=== PATIENT | male | born 1945 | race Caucasian/White ===

== ENCOUNTER 2017-03-22 09:34 | Emergency (ER) | payer MEDICARE, BC ==
[~2017-03-22] VITALS: Ht 177.8 cm; Wt 122.7 kg
[~2017-03-22 09:34] MED LIST: ASACOL HD800 MG PO; ASPIRIN 81M81 MG/TA2 PO; CANASA 1000MG1000 MG RC; CARAFATE 1GM1 G PO; ECONAZOLE NITRATE11 TOP; ELIDEL1%; K-DUR 10 MEQ T10 MEQ PO; LANTUS100 U/ML SC; LASIX 40MG TABL40 MG PO; LIPITOR 40MG TA40 MG PO; NORCO 325 MG-51 TAB PO; NOVOLOG 100U100 U/M1 SQ; PRIL40 PO; ZOFRAN ODT4 MG PO
[2017-03-22 09:39] VITALS: TEMP 97.5
[2017-03-22 10:35] LABS: BASO # 0.1 (0.0-0.2); EOS # 0.2 (0.0-0.7); EOS % 2.9 % (0-4.0); GRAN # 4.5 (1.4-6.5); HEMATOCRIT 40.3 % (42.0-52.0); HEMOGLOBIN 13.8 g/dl (13.5-18.0); LYMPH # 1.3 (1.2-3.4); LYMPH % 18.1 % (20.0-51.0); MEAN CELL VOLUME 87 fl (80.0-100.0); MEAN CORPUSCULAR HEMOGLOBIN 30 pg (27.0-31.0); MEAN CORPUSCULAR HGB CONC 34 g/dl (33.0-37.0); MEAN PLATELET VOLUME 11.6 fl (7.4-10.4); MONO # 0.9 (0.1-0.6); MONO % 12.6 % (1.7-9.3); PLATELET COUNT 157 K/mm3 (130-400); RED BLOOD COUNT 4.65 M/mm3 (4.20-5.60); REDCELL DISTRIBUTION WIDTH-CV 14.5 % (11.5-14.5); WHITE BLOOD COUNT 6.9 K/mm3 (4.8-10.8)
[2017-03-22 10:56] LABS: ADJUSTED CALCIUM 9.3 mg/dL (8.4-10.2); ALBUMIN 4.2 gm/dL (3.5-5.0); BILIRUBIN,TOTAL 1.4 mg/dL (0.0-1.0); C-REACTIVE PROTEIN 2.1 mg/dL (0.0-0.9); CALCIUM 9.5 mg/dL (8.4-10.2); CREATININE, serum 1.51 mg/dL (0.66-1.25); POTASSIUM 3.4 mmol/L (3.4-5.0); TOTAL PROTEIN 7.4 gm/dL (6.4-8.2)
[2017-03-22 11:26] LABS: PH 5 (5-8); SQUAMOUS EPITHELIAL None Seen /hpf; URINE APPEARANCE Clear; URINE BACTERIA None Seen /hpf; URINE BILIRUBIN Negative (NEGATIVE); URINE BLOOD Negative (NEGATIVE); URINE COLOR Yellow; URINE GLUCOSE 3+ (NEGATIVE); URINE KETONE 1+ (NEGATIVE); URINE RBC 0-2 /hpf; URINE UROBILINOGEN Negative (NEGATIVE); URINE WBC 0-2 /hpf
[2017-03-22] MEDS ORDERED: GLUCOPHAGE XR500 M1 PO (12:03)
[2017-03-22] MEDS ORDERED: PREDNISONE20 MG PO (12:14)
[2017-03-22] MEDS ORDERED: NORCO 325 MG-51 TAB PO (12:22)
[2017-03-22] MEDS ORDERED: ZOFRAN 4MG T4 MG/TAB PO (12:22)
[2017-03-22 12:49] VITALS: BP 142/96; PULSE 94
== END 2017-03-22 12:51 | disposition home or self-care (01) ==
LOC: COL.ER 09:34
PROVIDERS: Emergency Medicine
DX: N13.2 Hydronephrosis with renal and ureteral calculous obstruction (principal); E11.9 Type 2 diabetes mellitus without complications; Z79.4 Long term (current) use of insulin; E78.5 Hyperlipidemia, unspecified; K51.90 Ulcerative colitis, unspecified, without complications; R63.0 Anorexia; R11.0 Nausea
CPT/HCPCS: J1170; J2405; J7030; Q9967

== ENCOUNTER 2017-07-26 15:26 | Emergency (ER) | payer MEDICARE, BC ==
[~2017-07-26] VITALS: Ht 177.8 cm; Wt 120.5 kg
[~2017-07-26 15:26] MED LIST changes: +GLUCOPHAGE XR500 M1 PO; +PREDNISONE20 MG PO; +ZOFRAN 4MG T4 MG/TAB PO
[2017-07-26 15:30] VITALS: TEMP 97.5
[2017-07-26 15:56] LABS: BASO # 0.1 (0.0-0.2); BASO % 1.3 % (0.0-2.0); EOS # 0.2 (0.0-0.7); EOS % 2.9 % (0-4.0); GRAN # 5.3 (1.4-6.5); GRAN % 66.7 % (42.2-75.2); HEMATOCRIT 40.7 % (42.0-52.0); HEMOGLOBIN 13.8 g/dl (13.5-18.0); LYMPH # 1.4 (1.2-3.4); LYMPH % 17.9 % (20.0-51.0); MEAN CELL VOLUME 93 fl (80.0-100.0); MEAN CORPUSCULAR HEMOGLOBIN 31 pg (27.0-31.0); MEAN CORPUSCULAR HGB CONC 34 g/dl (33.0-37.0); MEAN PLATELET VOLUME 10.3 fl (7.4-10.4); MONO # 0.8 (0.1-0.6); MONO % 10.4 % (1.7-9.3); PLATELET COUNT 171 K/mm3 (130-400); RED BLOOD COUNT 4.39 M/mm3 (4.20-5.60); WHITE BLOOD COUNT 7.9 K/mm3 (4.8-10.8)
[2017-07-26 16:06] LABS: INR 1.1 (0.8-3.0); PROTHROMBIN TIME 13.2 SECONDS (9.7-12.8)
[2017-07-26] MEDS ORDERED: ASACOL HD800 MG PO (16:09)
[2017-07-26] MEDS ORDERED: K-TAB10 PO (16:10)
[2017-07-26] MEDS ORDERED: PRILOSEC 20MG20 MG PO (16:10)
[2017-07-26] MEDS ORDERED: LIPITOR 40MG TA40 MG PO (16:11)
[2017-07-26] MEDS ORDERED: LASIX 80MG TABL80 MG PO (16:11)
[2017-07-26] MEDS ORDERED: LANTUS100 U/ML SQ (16:12)
[2017-07-26] MEDS ORDERED: ASPIRIN E.C. 8181 MG PO (16:13)
[2017-07-26] MEDS ORDERED: NOVOLOG 100U100 U/M1 SQ (16:13)
[2017-07-26] MEDS ORDERED: ZOFRAN 4MG T4 MG/TAB PO (16:14)
[2017-07-26 16:15] LABS: ADJUSTED CALCIUM 8.8 mg/dL (8.4-10.2); ALANINE AMINOTRANSFERASE 62 U/L (21-72); ALBUMIN 4.4 gm/dL (3.5-5.0); ALKALINE PHOSPHATASE 140 U/L (50-136); ANION GAP 13 mmol/L (7-16); BLOOD UREA NITROGEN 12 mg/dL (9-20); CALCIUM 9.1 mg/dL (8.4-10.2); CARBON DIOXIDE 22 mmol/L (22-30); CHLORIDE 98 mmol/L (98-107); CREATININE, serum 1.18 mg/dL (0.66-1.25); LIPASE 25 U/L (23-300); POTASSIUM 4.3 mmol/L (3.4-5.0); SODIUM 133 mmol/L (137-145); TOTAL PROTEIN 7.5 gm/dL (6.4-8.2)
[2017-07-26 16:16] LABS: C-REACTIVE PROTEIN < 0.5 mg/dL (0.0-0.9)
[2017-07-26 16:17] LABS: GLUCOSE 404 mg/dL (74-106)
[2017-07-26 18:01] VITALS: BP 117/67; PULSE 98
== END 2017-07-26 18:15 | disposition home or self-care (01) ==
LOC: COL.ER 15:26
PROVIDERS: Family Medicine
DX: K62.5 Hemorrhage of anus and rectum (principal); R10.9 Unspecified abdominal pain; E11.9 Type 2 diabetes mellitus without complications; Z79.4 Long term (current) use of insulin; Z79.82 Long term (current) use of aspirin; Z98.890 Other specified postprocedural states
CPT/HCPCS: J1170; J2405; J7030; J7050; Q9967

== ENCOUNTER 2017-07-29 20:35 | Emergency (ER) | payer MEDICARE, BC ==
[~2017-07-29] VITALS: Ht 177.8 cm; Wt 117.3 kg
[~2017-07-29 20:35] MED LIST changes: +ASPIRIN E.C. 8181 MG PO; +K-TAB10 PO; +LANTUS100 U/ML SQ; +LASIX 80MG TABL80 MG PO; +PRILOSEC 20MG20 MG PO
[2017-07-29 20:37] VITALS: BP 145/84; PULSE 103; TEMP 99.3
[2017-07-29 21:10] LABS: BASO # 0.1 (0.0-0.2); BASO % 1.1 % (0.0-2.0); EOS # 0.2 (0.0-0.7); EOS % 2.9 % (0-4.0); GRAN # 4.2 (1.4-6.5); GRAN % 57.6 % (42.2-75.2); HEMOGLOBIN 13.3 g/dl (13.5-18.0); LYMPH # 1.8 (1.2-3.4); LYMPH % 24.7 % (20.0-51.0); MEAN CELL VOLUME 93 fl (80.0-100.0); MEAN CORPUSCULAR HEMOGLOBIN 32 pg (27.0-31.0); MEAN CORPUSCULAR HGB CONC 34 g/dl (33.0-37.0); MEAN PLATELET VOLUME 10.4 fl (7.4-10.4); MONO % 13.2 % (1.7-9.3); PLATELET COUNT 177 K/mm3 (130-400); RED BLOOD COUNT 4.19 M/mm3 (4.20-5.60); WHITE BLOOD COUNT 7.3 K/mm3 (4.8-10.8)
[2017-07-29 21:20] LABS: ADJUSTED CALCIUM 9.3 mg/dL (8.4-10.2); ALANINE AMINOTRANSFERASE 73 U/L (21-72); ALBUMIN 4.2 gm/dL (3.5-5.0); ALKALINE PHOSPHATASE 145 U/L (50-136); ANION GAP 11 mmol/L (7-16); BILIRUBIN,TOTAL 0.7 mg/dL (0.0-1.0); BLOOD UREA NITROGEN 10 mg/dL (9-20); CALCIUM 9.5 mg/dL (8.4-10.2); CARBON DIOXIDE 25 mmol/L (22-30); CHLORIDE 97 mmol/L (98-107); CREATININE, serum 1.21 mg/dL (0.66-1.25); GLUCOSE 260 mg/dL (74-106); POTASSIUM 4.4 mmol/L (3.4-5.0); SODIUM 133 mmol/L (137-145); TOTAL PROTEIN 7.4 gm/dL (6.4-8.2)
[2017-07-29 22:30] LABS: C-REACTIVE PROTEIN < 0.5 mg/dL (0.0-0.9); LIPASE 25 U/L (23-300)
[2017-07-29] MEDS ORDERED: PREDNISONE20 MG PO (22:46)
[2017-07-29] MEDS ORDERED: NORCO 325 MG-51 TAB PO (22:46)
== END 2017-07-29 23:10 | disposition home or self-care (01) ==
LOC: COL.ER 20:35
PROVIDERS: Emergency Medicine
DX: K92.2 Gastrointestinal hemorrhage, unspecified (principal); K51.90 Ulcerative colitis, unspecified, without complications; I10 Essential (primary) hypertension; E11.9 Type 2 diabetes mellitus without complications; E78.5 Hyperlipidemia, unspecified; Z79.82 Long term (current) use of aspirin; Z79.4 Long term (current) use of insulin
CPT/HCPCS: C9113; J2930; J3010; J7030

== ENCOUNTER 2017-08-01 15:09 | Observation (INO) | payer MEDICARE, BC ==
[~2017-08-01] VITALS: Ht 177.8 cm; Wt 113.6 kg
[2017-08-01 16:44] LABS: BASO # 0.1 (0.0-0.2); BASO % 1.2 % (0.0-2.0); EOS % 0.3 % (0-4.0); GRAN # 6.1 (1.4-6.5); GRAN % 78.3 % (42.2-75.2); HEMOGLOBIN 14.4 g/dl (13.5-18.0); LYMPH # 0.8 (1.2-3.4); LYMPH % 10.6 % (20.0-51.0); MEAN CELL VOLUME 93 fl (80.0-100.0); MEAN CORPUSCULAR HEMOGLOBIN 31 pg (27.0-31.0); MEAN CORPUSCULAR HGB CONC 34 g/dl (33.0-37.0); MEAN PLATELET VOLUME 11.4 fl (7.4-10.4); MONO # 0.7 (0.1-0.6); MONO % 8.6 % (1.7-9.3); PLATELET COUNT 236 K/mm3 (130-400); RED BLOOD COUNT 4.65 M/mm3 (4.20-5.60); WHITE BLOOD COUNT 7.8 K/mm3 (4.8-10.8)
[2017-08-01 16:52] LABS: INR 1.1 (0.8-3.0); PROTHROMBIN TIME 12.6 SECONDS (9.7-12.8)
[2017-08-01 16:55] LABS: PARTIAL THROMBOPLASTIN TIME 27.1 SECONDS (26.0-37.0)
[2017-08-01 17:13] LABS: ADJUSTED CALCIUM 8.6 mg/dL (8.4-10.2); ALBUMIN 4.9 gm/dL (3.5-5.0); BILIRUBIN,TOTAL 1.2 mg/dL (0.0-1.0); CALCIUM 9.3 mg/dL (8.4-10.2); CREATININE, serum 1.26 mg/dL (0.66-1.25); POTASSIUM 4.8 mmol/L (3.4-5.0); TOTAL PROTEIN 8.3 gm/dL (6.4-8.2)
[2017-08-01 17:23] VITALS: BP 160/74; PULSE 97
[2017-08-01 21:35] VITALS: BP 145/78; PULSE 105; TEMP 97.8
[2017-08-02 04:00] VITALS: BP 138/74; PULSE 102; TEMP 97.6
[2017-08-02 07:34] LABS: BASO # 0.1 (0.0-0.2); BASO % 0.7 % (0.0-2.0); EOS % 0.2 % (0-4.0); GRAN # 6.8 (1.4-6.5); HEMATOCRIT 37.7 % (42.0-52.0); HEMOGLOBIN 12.8 g/dl (13.5-18.0); LYMPH # 0.9 (1.2-3.4); LYMPH % 11.2 % (20.0-51.0); MEAN CELL VOLUME 92 fl (80.0-100.0); MEAN CORPUSCULAR HEMOGLOBIN 31 pg (27.0-31.0); MEAN CORPUSCULAR HGB CONC 34 g/dl (33.0-37.0); MEAN PLATELET VOLUME 10.7 fl (7.4-10.4); MONO # 0.3 (0.1-0.6); MONO % 3.8 % (1.7-9.3); PLATELET COUNT 197 K/mm3 (130-400); WHITE BLOOD COUNT 8.2 K/mm3 (4.8-10.8)
[2017-08-02 07:43] LABS: CALCIUM 8.5 mg/dL (8.4-10.2); CREATININE, serum 1.07 mg/dL (0.66-1.25); POTASSIUM 4.5 mmol/L (3.4-5.0)
[2017-08-02 10:00] VITALS: BP 141/59; PULSE 74
[2017-08-02 10:15] VITALS: BP 139/67; PULSE 75; TEMP 98.4
[2017-08-02 10:30] VITALS: BP 143/60; PULSE 74; TEMP 98.2
[2017-08-02 10:45] VITALS: BP 131/71; PULSE 84
[2017-08-02] MEDS ORDERED: BENTYL 10MG10 MG/CAP PO (13:12)
[2017-08-02] MEDS ORDERED: METAMUCIL3.4 GM/DOS PO (13:13)
[2017-08-02] MEDS ORDERED: PREDNISONE10 MG PO (13:24)
[2017-08-02 13:44] VITALS: BP 134/73; PULSE 79
== END 2017-08-02 14:10 | disposition home or self-care (01) ==
LOC: COL.ER 15:09 → SURG 19:51
PROVIDERS: Emergency Medicine; Internal Medicine
DX: K51.511 Left sided colitis with rectal bleeding (principal); N17.9 Acute kidney failure, unspecified; E87.1 Hypo-osmolality and hyponatremia; E86.1 Hypovolemia; K29.30 Chronic superficial gastritis without bleeding; K63.89 Other specified diseases of intestine; R74.8 Abnormal levels of other serum enzymes; I10 Essential (primary) hypertension; E78.5 Hyperlipidemia, unspecified; Z79.4 Long term (current) use of insulin; Z79.82 Long term (current) use of aspirin; Z86.12 Personal history of poliomyelitis; Z87.891 Personal history of nicotine dependence; Z88.0 Allergy status to penicillin; E11.65 Type 2 diabetes mellitus with hyperglycemia; K21.9 Gastro-esophageal reflux disease without esophagitis; K76.0 Fatty (change of) liver, not elsewhere classified; G47.33 Obstructive sleep apnea (adult) (pediatric); K57.90 Diverticulosis of intestine, part unspecified, without perforation or abscess without bleeding; K64.4 Residual hemorrhoidal skin tags; R63.4 Abnormal weight loss
CPT/HCPCS: G0378; J1815; J2704; J2930; J7030; J7512

== ENCOUNTER 2017-12-21 20:22 | Emergency (ER) | payer MEDICARE, BC ==
[~2017-12-21] VITALS: Ht 177.8 cm; Wt 118.2 kg
[~2017-12-21 20:22] MED LIST changes: +BENTYL 10MG10 MG/CAP PO; +METAMUCIL3.4 GM/DOS PO; +PREDNISONE10 MG PO
[2017-12-21 20:47] VITALS: TEMP 97
[2017-12-21 21:01] LABS: BASO # 0.1 (0.0-0.2); BASO % 1.1 % (0.0-2.0); EOS # 0.2 (0.0-0.7); EOS % 1.5 % (0-4.0); GRAN # 6.8 (1.4-6.5); GRAN % 63.4 % (42.2-75.2); HEMATOCRIT 42.4 % (42.0-52.0); HEMOGLOBIN 14.7 g/dl (13.5-18.0); LYMPH # 2.4 (1.2-3.4); LYMPH % 22.2 % (20.0-51.0); MEAN CELL VOLUME 88 fl (80.0-100.0); MEAN CORPUSCULAR HEMOGLOBIN 30 pg (27.0-31.0); MEAN CORPUSCULAR HGB CONC 35 g/dl (33.0-37.0); MEAN PLATELET VOLUME 10.4 fl (7.4-10.4); MONO # 1.2 (0.1-0.6); MONO % 11.1 % (1.7-9.3); PLATELET COUNT 227 K/mm3 (130-400); RED BLOOD COUNT 4.83 M/mm3 (4.20-5.60); REDCELL DISTRIBUTION WIDTH-CV 13.8 % (11.5-14.5)
[2017-12-21 21:09] LABS: ALBUMIN 4.3 gm/dL (3.5-5.0); BILIRUBIN,TOTAL 0.5 mg/dL (0.0-1.0); CALCIUM 9.8 mg/dL (8.4-10.2); CREATININE, serum 1.2 mg/dL (0.66-1.25); POTASSIUM 3.7 mmol/L (3.4-5.0); TOTAL PROTEIN 8.1 gm/dL (6.4-8.2)
[2017-12-21 21:17] LABS: C-REACTIVE PROTEIN 0.5 mg/dL (0.0-0.9)
[2017-12-21 22:12] LABS: COLLECTION METHOD CATHETER
[2017-12-21 22:17] LABS: PH 5 (5-8); SQUAMOUS EPITHELIAL None Seen /hpf; URINE APPEARANCE Clear; URINE BACTERIA None Seen /hpf; URINE BILIRUBIN Negative (NEGATIVE); URINE BLOOD Negative (NEGATIVE); URINE COLOR Yellow; URINE GLUCOSE 2+ (NEGATIVE); URINE KETONE Negative (NEGATIVE); URINE LEUKOCYTE ESTERASE Negative (NEGATIVE); URINE NITRATE Negative (NEGATIVE); URINE PROTEIN(semi-quant) Negative (NEGATIVE); URINE RBC 0-2 /hpf; URINE UROBILINOGEN Negative (NEGATIVE)
[2017-12-21 23:40] VITALS: BP 153/77; PULSE 100
[2017-12-22] MEDS ORDERED: MACROBID 1100 MG/CAP PO (13:39)
[2017-12-22] MEDS ORDERED: FLOMAX 0.40.4 MG/CAP PO (13:51)
== END 2017-12-21 23:40 | disposition home or self-care (01) ==
LOC: COL.ER 20:22
PROVIDERS: Family Medicine
DX: K59.00 Constipation, unspecified (principal); N40.0 Benign prostatic hyperplasia without lower urinary tract symptoms; R33.9 Retention of urine, unspecified; Z79.82 Long term (current) use of aspirin; Z79.4 Long term (current) use of insulin
CPT/HCPCS: J7050; Q9967

== ENCOUNTER 2017-12-22 10:01 | Emergency (ER) | payer MEDICARE, BC ==
[~2017-12-22] VITALS: Ht 177.8 cm; Wt 118.2 kg
[2017-12-22 10:04] VITALS: TEMP 97.6
[2017-12-22 10:36] LABS: COLLECTION METHOD CATHETER
[2017-12-22 10:47] LABS: MUCOUS Present /lpf; PH 5 (5-8); SQUAMOUS EPITHELIAL 0-2 /hpf; URINE APPEARANCE Hazy; URINE BACTERIA None Seen /hpf; URINE BILIRUBIN Negative (NEGATIVE); URINE BLOOD 2+ (NEGATIVE); URINE COLOR Yellow; URINE GLUCOSE 3+ (NEGATIVE); URINE KETONE Negative (NEGATIVE); URINE LEUKOCYTE ESTERASE Negative (NEGATIVE); URINE NITRATE Negative (NEGATIVE); URINE PROTEIN(semi-quant) 2+ (NEGATIVE); URINE RBC >50 /hpf
[2017-12-22 11:02] LABS: BASO # 0.1 (0.0-0.2); BASO % 1.2 % (0.0-2.0); EOS # 0.1 (0.0-0.7); EOS % 1.1 % (0-4.0); GRAN # 6.8 (1.4-6.5); GRAN % 73.7 % (42.2-75.2); HEMATOCRIT 42.3 % (42.0-52.0); HEMOGLOBIN 14.6 g/dl (13.5-18.0); LYMPH # 1.2 (1.2-3.4); LYMPH % 12.8 % (20.0-51.0); MEAN CELL VOLUME 88 fl (80.0-100.0); MEAN CORPUSCULAR HEMOGLOBIN 30 pg (27.0-31.0); MEAN CORPUSCULAR HGB CONC 35 g/dl (33.0-37.0); MEAN PLATELET VOLUME 10.8 fl (7.4-10.4); MONO % 10.7 % (1.7-9.3); PLATELET COUNT 182 K/mm3 (130-400); RED BLOOD COUNT 4.83 M/mm3 (4.20-5.60); REDCELL DISTRIBUTION WIDTH-CV 14.1 % (11.5-14.5)
[2017-12-22 11:14] LABS: INR 1.1 (0.8-3.0); PROTHROMBIN TIME 12.5 SECONDS (9.7-12.8)
[2017-12-22 11:14] LABS: BILIRUBIN,TOTAL 0.8 mg/dL (0.0-1.0); C-REACTIVE PROTEIN 0.7 mg/dL (0.0-0.9); CALCIUM 9.2 mg/dL (8.4-10.2); CREATININE, serum 1.11 mg/dL (0.66-1.25); POTASSIUM 3.9 mmol/L (3.4-5.0); TOTAL PROTEIN 7.5 gm/dL (6.4-8.2)
[2017-12-22 11:17] LABS: PARTIAL THROMBOPLASTIN TIME 24.9 SECONDS (26.0-37.0)
[2017-12-22] MEDS ORDERED: MACROBID 1100 MG/CAP PO (13:39)
[2017-12-22] MEDS ORDERED: FLOMAX 0.40.4 MG/CAP PO (13:51)
[2017-12-22 14:00] VITALS: BP 126/67; PULSE 94
== END 2017-12-22 14:00 | disposition home or self-care (01) ==
LOC: COL.ER 10:01
PROVIDERS: Emergency Medicine
DX: N39.0 Urinary tract infection, site not specified (principal); K56.41 Fecal impaction; E11.9 Type 2 diabetes mellitus without complications; I10 Essential (primary) hypertension; E78.5 Hyperlipidemia, unspecified; Z90.89 Acquired absence of other organs; Z79.4 Long term (current) use of insulin; Z79.82 Long term (current) use of aspirin
CPT/HCPCS: J2060; J3010

== ENCOUNTER 2017-12-25 12:25 | Emergency (ER) | payer MEDICARE, BC ==
[~2017-12-25] VITALS: Ht 177.8 cm; Wt 118.2 kg
[~2017-12-25 12:25] MED LIST changes: +FLOMAX 0.40.4 MG/CAP PO; +MACROBID 1100 MG/CAP PO
[2017-12-25 12:29] VITALS: TEMP 97
[2017-12-25 13:45] VITALS: BP 148/74; PULSE 70
== END 2017-12-25 13:46 | disposition home or self-care (01) ==
LOC: COL.ER 12:25
DX: G89.18 Other acute postprocedural pain (principal); N48.89 Other specified disorders of penis; T83.84XA Pain due to genitourinary prosthetic devices, implants and grafts, initial encounter; E11.9 Type 2 diabetes mellitus without complications; E78.00 Pure hypercholesterolemia, unspecified; Y73.2 Prosthetic and other implants, materials and accessory gastroenterology and urology devices associated with adverse incidents; Z87.19 Personal history of other diseases of the digestive system; Z79.4 Long term (current) use of insulin; Z79.82 Long term (current) use of aspirin

== ENCOUNTER 2019-01-15 13:53 | Emergency (ER) | payer MEDICARE, BC ==
[~2019-01-15] VITALS: Ht 177.8 cm; Wt 127.3 kg
[2019-01-15 13:54] VITALS: TEMP 98.4
[2019-01-15 15:28] LABS: BASO # 0.1 (0.0-0.2); BASO % 1.1 % (0.0-2.0); EOS % 0.4 % (0-4.0); GRAN # 6.3 (1.4-6.5); GRAN % 75.9 % (42.2-75.2); HEMATOCRIT 42.7 % (42.0-52.0); HEMOGLOBIN 14.5 g/dl (13.5-18.0); LYMPH # 0.9 (1.2-3.4); LYMPH % 10.6 % (20.0-51.0); MEAN CELL VOLUME 90 fl (80.0-100.0); MEAN CORPUSCULAR HEMOGLOBIN 31 pg (27.0-31.0); MEAN CORPUSCULAR HGB CONC 34 g/dl (33.0-37.0); MONO # 0.9 (0.1-0.6); MONO % 11.3 % (1.7-9.3); PLATELET COUNT 205 K/mm3 (130-400); RED BLOOD COUNT 4.76 M/mm3 (4.20-5.60); REDCELL DISTRIBUTION WIDTH-CV 14.6 % (11.5-14.5)
[2019-01-15 15:49] LABS: BILIRUBIN,TOTAL 0.8 mg/dL (0.0-1.0); CALCIUM 8.9 mg/dL (8.4-10.2); CREATININE, serum 1.22 (0.66-1.25); TOTAL PROTEIN 7.4 gm/dL (6.4-8.2)
[2019-01-15 15:56] LABS: C-REACTIVE PROTEIN 0.5 mg/dL (0.0-0.9)
[2019-01-15 16:48] LABS: COLLECTION METHOD CLEAN CATCH
[2019-01-15 16:53] LABS: PH 5 (5-8); SQUAMOUS EPITHELIAL 0-2 /hpf; URINE APPEARANCE Clear; URINE BACTERIA Rare /hpf; URINE BILIRUBIN Negative (NEGATIVE); URINE BLOOD Negative (NEGATIVE); URINE COLOR Straw; URINE GLUCOSE Negative (NEGATIVE); URINE KETONE Negative (NEGATIVE); URINE LEUKOCYTE ESTERASE Negative (NEGATIVE); URINE NITRATE Negative (NEGATIVE); URINE PROTEIN(semi-quant) Negative (NEGATIVE); URINE RBC 0-2 /hpf; URINE UROBILINOGEN Negative (NEGATIVE)
[2019-01-15 17:15] VITALS: BP 133/68; PULSE 110
== END 2019-01-15 17:25 | disposition home or self-care (01) ==
LOC: COL.ER 13:53
PROVIDERS: Nurse Practitioner Primary Care
DX: R19.7 Diarrhea, unspecified (principal); E11.9 Type 2 diabetes mellitus without complications; I11.0 Hypertensive heart disease with heart failure; I50.9 Heart failure, unspecified; Z79.4 Long term (current) use of insulin; Z79.82 Long term (current) use of aspirin; Z87.442 Personal history of urinary calculi; Z87.19 Personal history of other diseases of the digestive system; Z90.49 Acquired absence of other specified parts of digestive tract; Z98.890 Other specified postprocedural states; Z87.891 Personal history of nicotine dependence
CPT/HCPCS: J1170; J2550; J7030; Q9967

== ENCOUNTER 2019-01-17 12:39 | Inpatient (IN) | payer MEDICARE, BC ==
[~2019-01-17] VITALS: Ht 177.8 cm; Wt 129.0 kg
[2019-01-17 13:19] VITALS: BP 121/71; PULSE 95; TEMP 98.5
[2019-01-17 13:26] LABS: BASO # 0.1 (0.0-0.2); BASO % 1.5 % (0.0-2.0); EOS # 0.1 (0.0-0.7); EOS % 2.3 % (0-4.0); GRAN # 3.6 (1.4-6.5); GRAN % 58.6 % (42.2-75.2); HEMATOCRIT 38.9 % (42.0-52.0); LYMPH # 1.6 (1.2-3.4); LYMPH % 25.3 % (20.0-51.0); MEAN CELL VOLUME 92 fl (80.0-100.0); MEAN CORPUSCULAR HEMOGLOBIN 31 pg (27.0-31.0); MEAN CORPUSCULAR HGB CONC 33 g/dl (33.0-37.0); MEAN PLATELET VOLUME 10.9 fl (7.4-10.4); MONO # 0.7 (0.1-0.6); MONO % 11.5 % (1.7-9.3); PLATELET COUNT 174 K/mm3 (130-400); RED BLOOD COUNT 4.25 M/mm3 (4.20-5.60); REDCELL DISTRIBUTION WIDTH-CV 14.6 % (11.5-14.5)
[2019-01-17 13:36] LABS: ALBUMIN 3.6 gm/dL (3.5-5.0); BILIRUBIN,TOTAL 0.7 mg/dL (0.0-1.0); CALCIUM 8.6 mg/dL (8.4-10.2); CREATININE, serum 1.04 (0.66-1.25); POTASSIUM 4.1 mmol/L (3.4-5.0); TOTAL PROTEIN 6.7 gm/dL (6.4-8.2)
[2019-01-17 15:25] VITALS: BP 149/63; PULSE 111; TEMP 98
[2019-01-17 17:19] VITALS: BP 154/64; PULSE 113; TEMP 97.6
--- NOTE | 2019-01-17 18:21 | NUR ---
Patient is currently in room playing poker on tablet. States he has very little pain rating 2/10 to his abdomen. Has been asking for regular foods but was started on a clear liquid diet. Blood glucose checked and attempted to administer insulin and he declined for 2 reasons, first being 6 units would not touch his hyperglycemia and second he usually takes 50u novolog 3-4 times a day. He also does not want to take any at this time since he has not eaten all day. is at bedside and brought medication list at this time. Did accept full liquid tray. Call light and personal items are within reach.
[2019-01-17] MEDS ORDERED: PRILOSEC 20MG20 MG PO (18:34)
[2019-01-17] MEDS ORDERED: PRINIVIL10 MG PO (18:34)
[2019-01-17] MEDS ORDERED: FLONASEALLERGY NS (18:35)
[2019-01-17 19:24] VITALS: BP 149/71; PULSE 95; TEMP 98.1
--- NOTE | 2019-01-17 23:02 | NUR ---
PT IN BED AT THIS TIME DENIES PAIN AND DISCOMFORT. PT ADVISES THAT HE HAS NOT HAD ANY LOOSE STOOLS. NO NEEDS AT THIS TIME, CALL LIGHT WITHIN REACH.
[2019-01-17 23:28] VITALS: BP 149/67; PULSE 82; TEMP 98.9
--- NOTE | 2019-01-18 01:03 | NUR ---
PT REQUESTED TO LEAVE IV FLUIDS OFF, BECAUSE PT FEELS THAT HE CANNOT HAVE A BOWEL MOVEMENT BECAUSE OF THE IV FLUIDS.
[2019-01-18 03:32] VITALS: BP 134/51; PULSE 75; TEMP 97.8
--- NOTE | 2019-01-18 05:04 | NUR ---
CALLED BAHVIN TORRES IN REFERENCE TO PT'S DISCOMFORT TO FEELING LIKE HE HAS TO HAVE A BM BUT CANNOT. BHAVIN TORRES ADVISED THAT SHE IS OKAY WITH IT AT THIS TIME BECAUSE HE HAS HAD DIARRHIA FOR A LONG TIME AND TO ASK DR. NIEVES IN THE MORNING WHAT HE WANTS TO DO WITH IT. NO NEW ORDERS.
--- NOTE | 2019-01-18 07:20 | NUR ---
Assessment completed, alert/oriented, vital signs stable, reports continued abd pain 02/21 and requested pain meds this morning, I gave him 2 Ezel tablets, he is concerned that he has not had a BM sence admission, abdomen is soft and BS +, he is passing gas, blood sugars have been running a little high but we have him on CL only and I have explained that we are ok with him running a little high for now as he is not eating and we do not want to give too much insulin / he verbalized understanding, he is sitting on the BSC and ORACLE SOFTWARE ENGINEER is bipin to help him with a shower, denies other needs at [facility]
[2019-01-18 08:57] VITALS: BP 148/67; PULSE 80; TEMP 97.7
[2019-01-18 09:11] LABS: CREATININE, serum 0.93 (0.66-1.25); POTASSIUM 4.5 mmol/L (3.4-5.0)
[2019-01-18 12:10] VITALS: BP 166/63; PULSE 118; TEMP 97.8
--- NOTE | 2019-01-18 13:43 | NUR ---
QUINCY met with the patient and patient's , Jazz, to discuss discharge plan. The patient lives in [place] with his . He reports independence with ADLs and has a cane, walker, and walking stick. The patient's PCP is Dr. Corey Manning and he receives his medications from the [facility] or through a [employer] mail order. He reports no difficulties obtaining his meds. The patient does not have advanced directives, but he was interested in completing a DPOA-HC. The patient designated his , Jazz. QUINCY and the patient's RN, Michelle, witnessed the patient's signature. The patient was provided with the original and some copies. A copy was placed in the patient's chart. The patient plans to return home with his upon discharge. No additional needs at this time.
[2019-01-18 16:46] VITALS: BP 137/60; PULSE 109; TEMP 98
[2019-01-18 20:08] VITALS: BP 153/77; PULSE 90; TEMP 97.9
[2019-01-19] VITALS (8 sets, daily range): BP systolic 99–160; BP diastolic 41–92; PULSE 62–123; TEMP 97.4–98.4
--- NOTE | 2019-01-19 02:38 | NUR ---
EARLIER IN SHIFT PT FELT SHAKY BECAUSE HIS BLOOD GLUCOSE WAS AT 111. GAVE A SNACK TO HELP BRING UP BLOOD GLUCOSE LEVELS. BLOOD GLUCOSE AT 267 AND PT FEELS MUCH BETTER. PT ALSO REQUESTED DIET PEPSI AND GAVE HIM THAT. PT ADVISES THAT HE IS GOING HOME TODAY AND HE IS READY. PT ADVISES THAT HE WALKED EARLIER IN THE DAY AROUND THE HOSPITAL AND WAS NOT ABLE TO DO THAT BEFORE. PT DID GET LOST, SURGICAL NURSE CALLED TO GET HIM SOME ASSISTANCE TO GET BACK TO HIS ROOM. PT ALSO DID NOT HAVE HIS SHOES OR GRIPY SOCKS ON. ADVISED PT THAT IT IS IMPORTANT FOR HIM TO PROTECT HIS FEET BECAUSE HE IS A DIABETIC AND HE CAN HAVE COMPLICATIONS IF HE SHOULD GET A LACERATION ON HIS FOOT. PT VERBALIZED UNDERSTANDING. PT ADVISED THAT HE DID NOT HAVE A BOWEL MOVEMENT TODAY. PT RESTING/SLEEPING IN BED WITH NO S/S OF PAIN OR DISCOMFORT NOTED, CALL LIGHT WITHIN REACH.
--- NOTE | 2019-01-19 04:13 | NUR ---
CERTIFIED LEGAL INVESTIGATOR ADVISED THAT PT WAS TALKING TO HIMSELF. PT WOULD LOOK AT THE WALL AND START TALKING TO IT. WENT INTO ROOM CHECKED HR AND IT WAS BETWEEN 113 AND 115. PT ADVISES THAT IT IS NORMALLY 110. PT WAS ANXIOUS, ASKED IF HE WANTED SOMETHING TO HELP WITH ANXITY AND PT DECLINED. PT STARTED ASKING QUESTIONS TO NO ONE. I ASKED PT WHO HE WAS TALKING TO AND HE SAID HE DID NOT KNOW. I ADVISED HIM THAT NO ONE WAS THERE AND HE SAID THAT THEY ARE RIGHT THERE. I ADVISED HIM THAT THE CALL LIGHT IS ON THE BED AND THE TV IS ON AND THAT IS WHERE THE SOUND IS COMING FROM. PT WAS GIVEN DIET PEPSI REQUESTED. PT SITTING IN RECLINER. PT STATED THAT HE FEELS WEAK AGAIN AND DOES NOT THINK HE CAN WALK VERY FAR. ASKED PT IF HE NEEDED HELP TO GET TO BED TO REST OR SLEEP. CALL LIGHT WITHIN REACH.
[2019-01-19 06:08] LABS: BASO # 0.1 (0.0-0.2); BASO % 0.7 % (0.0-2.0); EOS % 0.2 % (0-4.0); GRAN # 6.5 (1.4-6.5); HEMATOCRIT 41.6 % (42.0-52.0); HEMOGLOBIN 14.1 g/dl (13.5-18.0); LYMPH # 0.8 (1.2-3.4); LYMPH % 9.6 % (20.0-51.0); MEAN CELL VOLUME 91 fl (80.0-100.0); MEAN CORPUSCULAR HEMOGLOBIN 31 pg (27.0-31.0); MEAN CORPUSCULAR HGB CONC 34 g/dl (33.0-37.0); MEAN PLATELET VOLUME 11.5 fl (7.4-10.4); MONO # 0.7 (0.1-0.6); MONO % 8.2 % (1.7-9.3); PLATELET COUNT 172 K/mm3 (130-400); RED BLOOD COUNT 4.56 M/mm3 (4.20-5.60); REDCELL DISTRIBUTION WIDTH-CV 14.5 % (11.5-14.5)
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
--- NOTE | 2019-01-19 08:30 | NUR ---
Telemetry in place before cardizem bolus administered- Hetal from telemetry notified of antiarrhythmic bolus before administration. Cardizem given over 2min. Pt became drowsy 1.5min into bolus, vitals obtained -remained stable. Pt converted to NSR - Hospitalist team notified - EKG ordered and RT called for EKG at 0843. Orders for an PO antiarrhythmic requested and denieda at this time. Pt remains in bed, alarm on, door open d/t pt continued attempt to get out of bed without using call light or asking for assistance. Call light in reach - still refusing its use.
--- NOTE | 2019-01-19 09:30 | NUR ---
Pt's at bedside visiting. She states pt's confusion and aggitation out of of the norm for pt. Pt continues to request getting out of bed and attempting to do so independently. Pt transfered with 2 assist to recliner - chair is near entrance door with chair alarm in place and turned on. Pt occasionally attempts to get out of chair (2 times within the hour) despite spouse at bedside and frequent reorientation by staff members.
--- NOTE | 2019-01-19 11:00 | NUR ---
Pt aggitated - PRN Haldol will be administered
--- NOTE | 2019-01-19 11:48 | NUR ---
Pt resting in bed with eyes closed not attempting to get out of bed and no vocalizations observed. Spouse remains at bedside
--- NOTE | 2019-01-19 16:02 | NUR ---
1602 call from [facility] FSBS=44. GIL Hu notified as assessment complete, notified tht patient asymptomatic - no palpations observed on telemetry, shakiness or diaphoresis. Pt drank 118mL of orange juice without difficulty. 1615: FSBS remains at 44. Additional 118mL of orange juice and chocolate ice cream consumed without difficutly. GIL Hu notified. 1630: FSBS 41, pt unable to tolerate anymore PO glucose enriched items. Per protocol IV glucose replacement administered. GIL Weiner notified 1645: FSBS 99. 1715: FSBS 80. Pt able to tolerate 118mL of grape juice well. Spouse has left for supper-states she will stay the night with pt to have a familiar face.
--- NOTE | 2019-01-19 16:44 | NUR ---
ACT= 159 seconds
--- NOTE | 2019-01-19 20:00 | NUR ---
PT IN BED RESTING, BUT GOT UP TO EAT SUPPER. BS WAS 111. PT DID NOT EAT WELL BUT DID EAT A LITTLE. IN ROOM WITH AT BEDSIDE. PT WENT BACK TO BED AFTER EATING SUPPER. PT WAS ASSISTED TO BATHROOM WELL AND GAIT WAS UNSTEADY. PT A/O X4. PT WOULD NOT OPEN EYES FOR NEUROS. CALL LIGHT WITHIN REACH.
--- NOTE | 2019-01-19 21:50 | NUR ---
PT DID NOT TAKE HIS AFTERNOON ASACOL HD 1600 MG PO. PT DID TAKE HIS HS ASACOL HD 1600 MG PO AT 2154. DAY NURSE LEFT PILLS WITH TO GIVE TO PT AND PT WAS ASLEEP. DID NOT WANT TO WAKE UP PT TO GIVE PILLS. RETURNED UNUSED PILLS IN Structure [employer].
[2019-01-20 00:10] VITALS: BP 121/59; PULSE 66; TEMP 97.9
--- NOTE | 2019-01-20 02:56 | NUR ---
PT SLEEPING/RESTING AND SOFTLY SNORING, RESP EVEN AND UNLABORED, WITH NO S/S OF PAIN OR DISCOMFORT NOTED, CALL LIGHT WITHIN REACH, BED ALARM ON, AND IN RECLINER AT BEDSIDE.
[2019-01-20 04:21] VITALS: BP 133/56; PULSE 74; TEMP 97.6
--- NOTE | 2019-01-20 07:44 | NUR ---
Report received from FARIDEH Santiago. Pt resting and eating potato chips in bed. Pt alert and oriented and denied pain. Call light in reach. Pt's in rm.
[2019-01-20 07:58] VITALS: BP 166/71; PULSE 71; TEMP 97.7
--- NOTE | 2019-01-20 08:18 | NUR ---
PT RESTING IN BED AND DENIED PAIN. PT ALERT AND ORIENTED. CALL LIGHT IN REACH. PT'S AT THE BEDSIDE.
--- NOTE | 2019-01-20 10:12 | NUR ---
Pt resting in bed comfortably and no concern. Call light in reach.
[2019-01-20] MEDS ORDERED: ROWASA ENEMA60 ML RC (12:27)
[2019-01-20] MEDS ORDERED: PREDNISONE10 MG PO (12:33)
--- NOTE | 2019-01-20 13:32 | NUR ---
Pt and went over discharge instruction and able to verbalize understanding of dc instruction. Pt signed dc paper and escorted out in WC.
== END 2019-01-20 13:44 | disposition home or self-care (01) | DRG 386 ==
LOC: MEDICAL 12:39
PROVIDERS: ADMIT Internal Medicine Gastroenterology
DX: K51.918 Ulcerative colitis, unspecified with other complication (principal); K92.1 Melena; I48.92 Unspecified atrial flutter; I10 Essential (primary) hypertension; E78.5 Hyperlipidemia, unspecified; E11.9 Type 2 diabetes mellitus without complications; Z79.4 Long term (current) use of insulin; Z88.0 Allergy status to penicillin; R19.8 Other specified symptoms and signs involving the digestive system and abdomen; R41.0 Disorientation, unspecified; R44.1 Visual hallucinations; Z66 Do not resuscitate
CPT/HCPCS: 99222-AI; 99232-AI; 99239; J1200; J1630; J1650; J1720; J1815; J2060; J7030; J7512

== ENCOUNTER → 2020-05-22 | Outpatient (CLI) | payer MEDICARE, BC ==
[~2020-05-22] MED LIST changes: +FLONASEALLERGY NS; +PRINIVIL10 MG PO; +ROWASA ENEMA60 ML RC
== END ==
LOC: COL.RAD 08:30
DX: Z01.812 Encounter for preprocedural laboratory examination (principal); F02.81 Dementia in other diseases classified elsewhere, unspecified severity, with behavioral disturbance; G20 Parkinson's disease
CPT/HCPCS: Q9967

== ENCOUNTER 2020-06-28 08:17 | Emergency (ER) | payer MEDICARE, BC ==
[~2020-06-28] VITALS: Ht 177.8 cm; Wt 112.7 kg
[2020-06-28 08:18] VITALS: TEMP 98.3
[2020-06-28 08:48] LABS: BASO # 0.1 (0.0-0.2); EOS # 0.2 (0.0-0.7); EOS % 2.8 % (0-4.0); GRAN # 4.2 (1.4-6.5); HEMOGLOBIN 14.3 g/dl (13.5-18.0); LYMPH # 1.9 (1.2-3.4); MEAN CELL VOLUME 93 fl (80.0-100.0); MEAN CORPUSCULAR HEMOGLOBIN 31 pg (27.0-31.0); MEAN CORPUSCULAR HGB CONC 33 g/dl (33.0-37.0); MEAN PLATELET VOLUME 11.3 fl (7.4-10.4); MONO # 0.8 (0.1-0.6); MONO % 10.4 % (1.7-9.3); PLATELET COUNT 188 K/mm3 (130-400); RED BLOOD COUNT 4.62 M/mm3 (4.20-5.60); REDCELL DISTRIBUTION WIDTH-CV 13.7 % (11.5-14.5)
[2020-06-28 08:54] LABS: INR 1.1 (0.8-3.0); PROTHROMBIN TIME 12.5 SECONDS (9.7-12.8)
[2020-06-28 09:01] LABS: ALANINE AMINOTRANSFERASE 32 U/L (4-49); ALBUMIN 3.9 gm/dL (3.5-5.0); ALKALINE PHOSPHATASE 128 U/L (50-136); ANION GAP 7 mmol/L (7-16); AST,SGOT 34 U/L (15-37); BILIRUBIN,TOTAL 0.6 mg/dL (0.0-1.0); BLOOD UREA NITROGEN 16 mg/dL (9-20); C-REACTIVE PROTEIN < 0.5 mg/dL (0.0-0.9); CALCIUM 9.6 mg/dL (8.4-10.2); CARBON DIOXIDE 29 mmol/L (22-30); CHLORIDE 102 mmol/L (98-107); CREATININE, serum 0.89 (0.66-1.25); GLUCOSE 317 mg/dL (74-106); POTASSIUM 4.3 mmol/L (3.4-5.0); SODIUM 138 mmol/L (137-145); TOTAL PROTEIN 6.9 gm/dL (6.4-8.2)
[2020-06-28 09:13] LABS: TROPONIN-I < 0.012 ng/mL (0.000-0.035)
[2020-06-28 09:37] LABS: COLLECTION METHOD CLEAN CATCH
[2020-06-28 09:43] LABS: MUCOUS Present /lpf; PH 6 (5-8); SQUAMOUS EPITHELIAL None Seen /hpf; URINE APPEARANCE Clear; URINE BACTERIA None Seen /hpf; URINE BILIRUBIN Negative (NEGATIVE); URINE BLOOD Negative (NEGATIVE); URINE COLOR Yellow; URINE GLUCOSE 3+ (NEGATIVE); URINE KETONE Negative (NEGATIVE); URINE LEUKOCYTE ESTERASE Negative (NEGATIVE); URINE NITRATE Negative (NEGATIVE); URINE PROTEIN(semi-quant) Negative (NEGATIVE); URINE RBC None Seen /hpf
[2020-06-28 11:11] VITALS: BP 174/95; PULSE 69
== END 2020-06-28 11:15 | disposition home or self-care (01) ==
LOC: COL.ER 08:17
PROVIDERS: Emergency Medicine
DX: R53.81 Other malaise (principal); E11.9 Type 2 diabetes mellitus without complications; Z20.828 Contact with and (suspected) exposure to other viral communicable diseases; Z79.4 Long term (current) use of insulin; Z79.51 Long term (current) use of inhaled steroids; Z88.0 Allergy status to penicillin; Z79.52 Long term (current) use of systemic steroids; Z79.82 Long term (current) use of aspirin
CPT/HCPCS: J7030; Q9967

== ENCOUNTER 2020-09-22 14:02 | Observation (INO) | payer MEDICARE, BC ==
[~2020-09-22] VITALS: Ht 177.8 cm; Wt 113.6 kg
[2020-09-22 15:02] LABS: BASO # 0.1 (0.0-0.2); BASO % 1.2 % (0.0-2.0); EOS # 0.1 (0.0-0.7); EOS % 2.2 % (0-4.0); GRAN # 3.4 (1.4-6.5); GRAN % 55.9 % (42.2-75.2); HEMATOCRIT 45.9 % (42.0-52.0); HEMOGLOBIN 15.3 g/dl (13.5-18.0); LYMPH # 1.6 (1.2-3.4); MEAN CELL VOLUME 89 fl (80.0-100.0); MEAN CORPUSCULAR HEMOGLOBIN 30 pg (27.0-31.0); MEAN CORPUSCULAR HGB CONC 33 g/dl (33.0-37.0); MONO # 0.8 (0.1-0.6); MONO % 13.2 % (1.7-9.3); PLATELET COUNT 192 K/mm3 (130-400); RED BLOOD COUNT 5.17 M/mm3 (4.20-5.60); REDCELL DISTRIBUTION WIDTH-CV 14.8 % (11.5-14.5)
[2020-09-22 15:05] LABS: ALANINE AMINOTRANSFERASE 32 U/L (4-49); ALBUMIN 4.2 gm/dL (3.5-5.0); ALKALINE PHOSPHATASE 159 U/L (50-136); ANION GAP 9 mmol/L (7-16); AST,SGOT 33 U/L (15-37); BILIRUBIN,TOTAL 0.7 mg/dL (0.0-1.0); BLOOD UREA NITROGEN 14 mg/dL (9-20); CALCIUM 9.1 mg/dL (8.4-10.2); CARBON DIOXIDE 28 mmol/L (22-30); CHLORIDE 100 mmol/L (98-107); CREATININE, serum 0.95 (0.66-1.25); GLUCOSE 277 mg/dL (74-106); POTASSIUM 4.3 mmol/L (3.4-5.0); SODIUM 137 mmol/L (137-145); TOTAL PROTEIN 7.5 gm/dL (6.4-8.2)
[2020-09-22 15:18] LABS: TROPONIN-I < 0.012 ng/mL (0.000-0.035)
[2020-09-22] MEDS ORDERED: VITAMIN E 400 U4001 PO (18:34)
--- NOTE | 2020-09-22 19:30 | NUR ---
Arrived to room 326 via stretcher from ED. Transferred to bed with three assist. Admission assessment complete. Oriented to room/policy. Admission orders initiated. Plan of care discussed for this shift to include medications/MRI of brain in AM/Echo. Denies questions/concerns. Assisted with calling to update. Denies needs. Call light in reach/bed alarm on. Will monitor.
[2020-09-22 19:31] VITALS: BP 132/67; PULSE 97; TEMP 97.4
[2020-09-22 23:47] VITALS: BP 140/58; PULSE 83; TEMP 98
[2020-09-23 04:00] VITALS: BP 138/56; PULSE 86; TEMP 98
--- NOTE | 2020-09-23 05:43 | NUR ---
Attempt made to have BM. Assisted to bathroom per patient request with heavy two assist-gait belt. Gait very unsteady. Shuffles and unable to flower buncher or picker feet. Standing was very difficult and unsteady. Slept well this shift-had some periods of forgetfullness but A&Ox3. Denies current needs. Call light in reach/bed alarm on. Will monitor.
--- NOTE | 2020-09-23 06:13 | NUR ---
Radiology here to discuss MRI. PT refusing MRI of brain, lab draws and medications until gets here at 0800. States he doesnt understand why he needs it. States "I already know whats wrong with me why do I need to go through this again." Hospitalist GIL Mohamud aware.
[2020-09-23 07:37] VITALS: BP 125/63; PULSE 101; TEMP 98
[2020-09-23 08:26] LABS: BASO # 0.1 (0.0-0.2); BASO % 1.3 % (0.0-2.0); EOS # 0.1 (0.0-0.7); GRAN # 3.6 (1.4-6.5); HEMATOCRIT 44.7 % (42.0-52.0); LYMPH # 1.5 (1.2-3.4); LYMPH % 23.9 % (20.0-51.0); MEAN CELL VOLUME 88 fl (80.0-100.0); MEAN CORPUSCULAR HEMOGLOBIN 30 pg (27.0-31.0); MEAN CORPUSCULAR HGB CONC 34 g/dl (33.0-37.0); MONO # 0.8 (0.1-0.6); MONO % 13.1 % (1.7-9.3); PLATELET COUNT 179 K/mm3 (130-400); RED BLOOD COUNT 5.06 M/mm3 (4.20-5.60); REDCELL DISTRIBUTION WIDTH-CV 15.1 % (11.5-14.5)
[2020-09-23 08:41] LABS: CALCIUM 8.6 mg/dL (8.4-10.2); CREATININE, serum 0.91 (0.66-1.25); POTASSIUM 3.9 mmol/L (3.4-5.0)
--- NOTE | 2020-09-23 09:08 | NUR ---
Initial visit; Patient and his thanked Telecommunications Officer for offering spiritual care and God's blessings.
[2020-09-23] MEDS ORDERED: UCERIS (11:16)
[2020-09-23 11:48] VITALS: BP 140/65; PULSE 103; TEMP 98.4
--- NOTE | 2020-09-23 12:00 | NUR ---
Assisted patient to the BSC, he did ok with the walker. He is slow with movement and very hesitant with his steps. He was able to stand on his own and move his feel mostly on his own. Just slow. He was very nervous about falling and kept thinking we wouldn't help with walking. His has been at bedside. Discussed his medications and she stated the Dr stopped the lipitor a few days before being admitted. No other changes at this time. Call light within reach. Bed alarm on.
--- NOTE | 2020-09-23 12:47 | NUR ---
Tile Power Shear Operator attended clinical rounds with the team. Prior to rounding SW met with the patient and the patient's , Jazz to complete intake. The patient lives in [place] with Jazz. The patient has a walker and receives assistance from Jazz for ADLs. The patient has PT from [facility]. The patient's PCP is Dr. Moyer and patient receives medications from [facility]. The patient has advanced directives in the EMR and designate Jazz. PT was ordered and are recommending post acute rehab. After discussing the options, the [facility] and Jazz [facility] 3)[facility]. Referrals sent. Awaiting response.
--- NOTE | 2020-09-23 14:14 | NUR ---
Civil Division Deputy Sheriff staffed with Ana, I[facility] Director. Ana met with the patient. The patient would like [facility] to be the first choice and will likely transition to [facility] for post acute rehab when able.
[2020-09-23 16:01] VITALS: BP 135/71; PULSE 102; TEMP 98.2
--- NOTE | 2020-09-23 16:32 | NUR ---
Credit Collections Analyst contacted Delilah with [facility] to inform her that the patient is currently hospitalized. QUINCY faxed updates to Delilah. Perla from [facility] reports they can accept the patient for post acute rehab.
--- NOTE | 2020-09-23 18:30 | NUR ---
Patient has been doing well this afternoon. Denies pain and nausea. He did not eat much of his lunch but he did most his supper. He has been calling for help with the urinal. He is slightly confused/forgetful but for the most part is alert and oriented to self, place and date. No other changes at this time. Call light within reach. Bed alarm on.
[2020-09-23 19:39] VITALS: BP 143/75; PULSE 102; TEMP 98.3
--- NOTE | 2020-09-23 20:10 | NUR ---
Pt. sitting up in bed at this time. Pt. is alert and intermittantly confused. INT to lt. AC patent. Pt. reports pain to lt. side, gave Tylenol per orders. Pt. denies further needs, call light within reach.
[2020-09-24 05:03] VITALS: BP 148/136; PULSE 95; TEMP 97.5
[2020-09-24 07:19] LABS: BASO # 0.1 (0.0-0.2); BASO % 1.2 % (0.0-2.0); EOS # 0.1 (0.0-0.7); EOS % 2.8 % (0-4.0); GRAN # 2.4 (1.4-6.5); GRAN % 48.1 % (42.2-75.2); HEMATOCRIT 42.7 % (42.0-52.0); LYMPH # 1.6 (1.2-3.4); LYMPH % 33.1 % (20.0-51.0); MEAN CELL VOLUME 90 fl (80.0-100.0); MEAN CORPUSCULAR HEMOGLOBIN 29 pg (27.0-31.0); MEAN CORPUSCULAR HGB CONC 33 g/dl (33.0-37.0); MEAN PLATELET VOLUME 11.2 fl (7.4-10.4); MONO # 0.7 (0.1-0.6); MONO % 14.2 % (1.7-9.3); PLATELET COUNT 186 K/mm3 (130-400); RED BLOOD COUNT 4.76 M/mm3 (4.20-5.60)
[2020-09-24 07:35] LABS: CALCIUM 8.7 mg/dL (8.4-10.2); CREATININE, serum 0.92 (0.66-1.25); POTASSIUM 3.4 mmol/L (3.4-5.0)
--- NOTE | 2020-09-24 07:51 | NUR ---
PT SITTING UP IN BED EATING BREAKFAST. PT IS INTERMITTANTLY CONFUSED. LUNGS CTA. OPERATIONS LIEUTENANT STUDENT NURSE SHANELL WORKING WITH PT THIS AM.
[2020-09-24 08:00] VITALS: BP 120/59; PULSE 109; TEMP 97.6
[2020-09-24 08:40] VITALS: BP 107/70; BP 130/70; BP 135/64; PULSE 106; PULSE 108; PULSE 115
[2020-09-24] MEDS ORDERED: TOPROL XL 25MG25 MG PO (09:23)
[2020-09-24] MEDS ORDERED: LASIX 20MG TABL20 MG PO ×2 (09:24→15:54)
[2020-09-24] MEDS ORDERED: TYLENOL 325MG325 MG PO (09:31)
[2020-09-24] MEDS ORDERED: SINEMET 25/101 UDTAB PO (09:32)
[2020-09-24] MEDS ORDERED: SEROQUEL 2525 MG/TAB PO ×2 (09:32→15:53)
[2020-09-24] MEDS ORDERED: NOVOLOG 100U100 U/M1 SQ (09:34)
[2020-09-24] MEDS ORDERED: NUPLAZID34 MG PO ×2 (10:23→17:15)
[2020-09-24 11:42] VITALS: BP 155/85; PULSE 107; TEMP 98
--- NOTE | 2020-09-24 14:31 | NUR ---
STICH REMOVED FROM LEFT UPPER CHEST FROM LOOP RECORDER.
--- NOTE | 2020-09-24 16:25 | NUR ---
REPORT TO ABIGAIL GONG.
== END 2020-09-24 16:26 ==
LOC: COL.ER 14:02 → SURG 18:42
PROVIDERS: Emergency Medicine; Physician Assistant; ADMIT Student in an Organized Health Care Education/Training Program
DX: G20 Parkinson's disease (principal); S30.1XXA Contusion of abdominal wall, initial encounter; R29.6 Repeated falls; E11.42 Type 2 diabetes mellitus with diabetic polyneuropathy; K51.90 Ulcerative colitis, unspecified, without complications; I10 Essential (primary) hypertension; R00.0 Tachycardia, unspecified; W01.0XXA Fall on same level from slipping, tripping and stumbling without subsequent striking against object, initial encounter; Z88.0 Allergy status to penicillin; Z90.89 Acquired absence of other organs; Z79.4 Long term (current) use of insulin; Z79.82 Long term (current) use of aspirin; Z87.891 Personal history of nicotine dependence; Z79.899 Other long term (current) drug therapy; Z95.818 Presence of other cardiac implants and grafts; Z20.822 Contact with and (suspected) exposure to COVID-19; Z86.12 Personal history of poliomyelitis; Z80.41 Family history of malignant neoplasm of ovary
CPT/HCPCS: G0378; J1650; J1815; J7030; Q9967

== ENCOUNTER 2020-09-24 10:39 | Inpatient (IN) | payer MEDICARE, BC ==
[~2020-09-24] VITALS: Ht 177.8 cm; Wt 117.1 kg
[~2020-09-24 10:39] MED LIST changes: +LASIX 20MG TABL20 MG PO; +NUPLAZID34 MG PO; +SEROQUEL 2525 MG/TAB PO; +SINEMET 25/101 UDTAB PO; +TOPROL XL 25MG25 MG PO; +TYLENOL 325MG325 MG PO; +UCERIS; +VITAMIN E 400 U4001 PO
[2020-09-24] MEDS ORDERED: SEROQUEL 2525 MG/TAB PO (15:53)
[2020-09-24] MEDS ORDERED: LASIX 20MG TABL20 MG PO (15:54)
[2020-09-24] MEDS ORDERED: NUPLAZID34 MG PO (17:15)
[2020-09-24 18:00] VITALS: BP 123/64; PULSE 99; TEMP 98.4
--- NOTE | 2020-09-24 20:00 | NUR ---
PT ADMITTED ON DAYSHIFT AROUND 1600. REPORT RECEIVED FROM ABIGAIL JEFFERSON RN. PT CONFUSED AND HALLUCINATING ABOUT DOGS. UNABLE TO ANSWER ANY QUESTIONS. 2:1 MAX ASSISTTRANSFER TO BSC. VOIDED CLEAR YELLOW URINE. CHANGED OUT BED DUE TO DEFECT IN MATTRESS. REVIEWED SAFETY MEAURSE WITH PT- UNABLE TO COMPRHEND. ADULT BRIEF ON FOR POSSIBLE INCONT. CALL LIGHT IN REACH. BED ALARM SIT ON SENSITIVE- MIDDLE SETTING.
--- NOTE | 2020-09-24 20:30 | NUR ---
Patient arrived to [facility] Room #336 at 4:30 PM. Patient was a max two assist with transferring from bed to BS. Patient was having hallucinations thinking there were a lot of kids in the room. He kept saying that he couldn't urinate at the [facility] [place] [place] with all the kids around. Patient was reasured that there were no kids there and then he allowed staff to work with him easier. This nurse received report from FARIDEH Turner in Surgical with the following information: ADA Diet; ACHS High Sliding Scale insulin; Takes pills whole with water; Has Parkinsons; Has a cardiac loop recorder and is on room air. Patient's Meds were completed and speech therapy was ordered per request of Dolores in . Patient refused his supper and refused his insulin. Patient currently resting in bed, call light in reach and bed alarm set. Reported off to night nurse.
[2020-09-25 05:12] VITALS: BP 130/68; PULSE 109; TEMP 98
[2020-09-25 05:13] VITALS: BP 130/68; PULSE 107; TEMP 98
--- NOTE | 2020-09-25 06:05 | NUR ---
PT HAS ATTEMPTED X2 TO GET OUT OF BED. REMAINS CONFUSED. MOSTLY COOPERATIVE. ANXIOUS AT TIMES. AND HALLUCINATING. PT TAKES GOWN & SHEET OFF FREQUENTLY.
--- NOTE | 2020-09-25 08:49 | NUR ---
PT SLEEPING IN BED AT BEDSIDE SHIFT REPORT. PT HAD DRY URINE ALL OVER BEDDING AND CHUCKS, BM IN BRIEF. PT MAX ASSIST TO SIT UP ON SIDE OF BED AND TWO ASSIST UP TO COMMODE TO CLEAN UP.
--- NOTE | 2020-09-25 09:43 | NUR ---
Follow-up visit; Patient thanked Pyridine Recovery Operator for checking on him and offering God's blessings.
[2020-09-25 17:18] VITALS: BP 125/63; PULSE 99; TEMP 97.8
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
--- NOTE | 2020-09-25 20:06 | NUR ---
PT IS UP IN CHAIR, DENIES PAIN, SOA. WATCHING TV. CALL LIGHT IN REACH.
--- NOTE | 2020-09-26 02:00 | NUR ---
PT AGREES TO TAKE A BITE OF APPLESAUCE. SEROQUEL 25MG PO CRUSHED AND GIVEN WITH APPLESAUCE. PT TAKES 3 BITES AND THEN REFUSES ANY MORE TO EAT. TAKES 1 SIP OF DIET PEPSI AND REFUSES ANY MORE. BED ALARM CONTINUES TO BE SET. CALL LIGHT IN REACH.
[2020-09-26 06:18] VITALS: BP 131/68; PULSE 98; TEMP 97.3
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
--- NOTE | 2020-09-26 14:06 | NUR ---
The patient is new to [facility]. Oracle Sql Developer met with the patient and his to complete intake. The patient lives in [place] with his , Jazz. The patient has a walker and receives assistance with ADLs. Jazz assists. Prior to hospitalization the patient received home health services from [facility]. The patient's PCP is Dr. Moyer and patient receives medications from [facility]. The patient has advanced directives in the EMR and they designate Jazz. There are no additional needs at this time.
[2020-09-26 16:11] VITALS: BP 129/75; PULSE 95; TEMP 97.7
--- NOTE | 2020-09-26 23:39 | NUR ---
PT IN BED A/O X2, DENIES PAIN OR DISCOMFORT. PT HAS CALL LIGHT WITHIN REACH, NO NEEDS AT THIS TIME.
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
[2020-09-27 06:05] VITALS: BP 141/66; PULSE 86; TEMP 98
--- NOTE | 2020-09-27 06:20 | NUR ---
PT WENT TO SLEEP AFTER EPISODE OF HALLUCINATION AND CONFUSSION, AND NO OTHER PROBLEMS SINCE THEN. PT HAS CALL LIGHT WITHIN REACH AND BED ALARM ON.
--- NOTE | 2020-09-27 07:13 | NUR ---
PT SLEEPING IN BED AT BEDSIDE SHIFT REPORT. PT REFUSED BREAKFAST MEAL AND STATED HE JUST WANTED TOAST. KITCHEN CALLED AND WILL BRING UP.
[2020-09-27 16:22] VITALS: BP 124/64; PULSE 97; TEMP 97.2
--- NOTE | 2020-09-27 18:18 | NUR ---
PT REPORTS HAVING TERRIBLE NIGHTMARES B/C OF SINIMET WHICH IS A FAIRLY NEW MEDICATION. PT REFUSED TO TAKE LAST DOSE TODAY, SAID HE WANTS TO SPEAK TO ABOUT DOSING WITH SINEMET. EDUCATED PT ON NOT STOPPING A MEDICATION COLD , HE STATED HE WOULD TAKE DOSES TOMORROW. KRISS GAVE PERMISSION TO HAVE OVERNIGHT IF THIS WILL HELP THE NURSE AND IS NECESSARY. THIS WAS COMMUNICATED TO NIGHT NURSE.
--- NOTE | 2020-09-27 19:24 | NUR ---
PT SITTING IN CHAIR WATCHING TV. DENIES ANY NEEDS AT THIS TIME. PT HAS CALL LIGHT IN HIS HANDS. BEDSIDE TABLE IN FRONT WITH HIS DRINKS ON.
--- NOTE | 2020-09-27 20:45 | NUR ---
SHIFT ASSESSMENT COMPLETE. MAKES CONVERSATION TONIGHT. MORE PLEASANT. WILL DO THINGS THAT I ASK HIM TO DO. WE TALKED ABOUT HIS PARKINSON'S. HE WAS ALERT BUT NOT ORIENTATED. TAKES HIS HS MEDS WITHOUT INCIDENCE. CALL LIGHT IN REACH. BED ALARM ON. WILL CONTINUE TO MONITOR.
[2020-09-28 05:54] VITALS: BP 139/84; PULSE 89; TEMP 97.3
--- NOTE | 2020-09-28 07:04 | NUR ---
PT ASLEEP WITH EVEN AND NON-LABORED RESPIRATIONS. PT TOOK AM MEDS WITH NO PROBLEMS. BED ALARM ON. REPORT GIVEN TO DAY SHIFT NURSE.
--- NOTE | 2020-09-28 09:20 | NUR ---
Assisted patient up to the chair. He did well with 1 to stand by assist. He is having complaints of pain left flank area. Encouraged him to drink water and he became upset about not wanting to drink our water. I offered bottled water and he stated that he would drink bottled water if it was brought in without the seal broken. Kitchen called for bottled water. Pt has otherwise only been drinking diet soda. He did have some urine incontinence prior to using urinal. No other needs, will continue to monitor.
--- NOTE | 2020-09-28 12:28 | NUR ---
Pt present in the room. He did drink the bottle of water I gave him and ate most of his lunch. he is sitting up in his chair. No other needs, will continue to monitor
[2020-09-28 16:01] VITALS: BP 126/66; PULSE 99; TEMP 97.8
--- NOTE | 2020-09-28 17:07 | NUR ---
Pt has overall had a good day. He did have a period of time this afternoon where he was hallucinating. Thought he saw things on the floor. He does require assistance with ambulating as well as helping with taking down and pulling up his pants when using the restroom. Only complaints of pain is his left flank pain. He is currently eating his dinner, no other needs, will continue to monitor.
--- NOTE | 2020-09-28 18:55 | NUR ---
RECEIVED CHANGE OF SHIFT REPORT FROM DAY SHIFT NURSE. CHAIR ALARM ON WHEN UP IN CHAIR.
--- NOTE | 2020-09-28 20:00 | NUR ---
OBSERVED SHUFFLING GAIT, REQUIRING FREQUENT CUES TO DIRECTOR OF VOLUNTEER SERVICES FEET WHEN WALKING, HAS A TENDENCY DIRECTOR OF VOLUNTEER SERVICES WHEELED WALKER WITH WALKING INSTEAD OF PUSHING WALKING CORRECTLY. FOLLOW COMMANDS AT THIS TIME. BED ALARM ON WHEN PUT TO BED.
[2020-09-29 05:30] VITALS: BP 131/75; PULSE 99; TEMP 97.9
--- NOTE | 2020-09-29 07:13 | NUR ---
CHANGE OF SHIFT REPORT GIVEN TO DAY SHIFT NURSEZEE. CHAIR ALARM ON WHILE UP IN CHAIR.
--- NOTE | 2020-09-29 09:24 | NUR ---
Follow-up visit; Patient thanked Cake Stripper for stopping this morning though declines prayer. Radhames seems somewhat down/depressed this morning. Cake Stripper offered God's blessings.
--- NOTE | 2020-09-29 11:43 | NUR ---
QUINCY met with the patient and his to introduce oneself and to follow up after the weekend. The patient states that the weekend did not go very well. He states that he had nightmares and hallucinations. He is hopeful to get his medications figured out and to get some rest soon. SW provided support.
[2020-09-29 17:01] VITALS: BP 150/76; PULSE 102; TEMP 98.2
--- NOTE | 2020-09-29 18:00 | NUR ---
Patient and his refused to take the Sinemet today. Explained that it is helping him because he is able to take more steps and move better than when he was admitted. Explained that he needs to take the other medications ordered because they will help with the hallucinations he has. He is worried about the nightmares he has at night. Explained the seroquel might help and that is supposed to help with the hallucinations as well. Dr Alistair Mccarthy seen him this afternoon and went over the medications with patient as well. No other changes at this time. Call light within reach.
--- NOTE | 2020-09-29 19:00 | NUR ---
RECEIVED CHANGE OF SHIFT REPORT FROM DAY SHIFT NURSE. CHAIR ALARM ON WHILE UP IN CHAIR. PATIENT COOPERATIVE AT THIS TIME.
--- NOTE | 2020-09-29 20:00 | NUR ---
PATIENT COOPERATIVE BUT IS CONFUSED AT TIMES THAT IS MORE NOTICEABLE WHEN FIRST WAKING UP. REQUIRES FREQUENT CUES WITH WALKING SAFELY AND CORRECTLY, OBSERVED PATIENT SHUFFLES WITH GAIT AND AT TIMES WILL DEMOLITION CRANE OPERATOR WALKING WITH WALKING. BED ALARM ON WHEN IN BED.
--- NOTE | 2020-09-30 07:40 | NUR ---
CHANGE OF SHIFT REPORT GIVEN TO DAY SHIFT NURSE, WILLIE GONG.
--- NOTE | 2020-09-30 08:41 | NUR ---
Admission QIM scores were reviewed by the team. Code of 5 chosen for eating was determined by team discussion to be the most usual performance for this patient during the assessment period. Code of 1 chosen for toileting transfers was determined by team discussion to be the most usual performance for this patient during the assessment period. Code of 1 chosen for putting on/taking off footwear was determined by team discussion to be the most usual performance for this patient during the assessment period. Code of 1 chosen for walk 10 feet was determined by team discussion to be the most usual performance for this patient during the assessment period.--Ana Denson, PD
--- NOTE | 2020-09-30 09:40 | NUR ---
PT SLEEPING IN BED AT BEDSIDE SHIFT REPORT. PT STILL REPORTS NOT SLEEPING WELL AND DOES NOT WANT TO CONTINUE TAKING SINEMET. PER PSYCH RECOMMENDATIONS, THIS NURSE WILL CALL DR. DELVALLE'S OFFICE TO DISCUSS CHANGING TO LOW DOSE.
[2020-09-30] MEDS ORDERED: SINEMET 25/101 UDTAB PO (10:04)
[2020-09-30 16:53] VITALS: BP 141/59; PULSE 83; TEMP 97.9
--- NOTE | 2020-09-30 19:07 | NUR ---
RECEIVED CHANGE OF SHIFT REPORT FROM DAY SHIFT NURSE.
--- NOTE | 2020-09-30 20:00 | NUR ---
PATIENT SITTING UP CHAIR WITH NO COMPLAINTS. OBSERVED GAIT SHUFFLING WHEN UP TO BATHROOM. DENIES CHEST PAIN/SHORTNESS OF BREATH. DENIES DISCOMFORT AT THIS TIME. CHAIR ALARM ON WHILE UP IN CHAIR.
--- NOTE | 2020-09-30 20:34 | NUR ---
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 AMB BETTER WITH SLIP ON STREET SHOES COMPARED TO WEARING HOSP NO SLIP SOCKS WITH WALKING. DENIES CHEST PAIN/SHORTNESS OF BREATH. PATIENT ORIENTED TO X3 BUT IS FORGETFUL AT TIME.
--- NOTE | 2020-09-30 22:00 | NUR ---
PATIENT REQUESTING TO BE WAKEN EVERY 2 HOURS TO GO TO BATHROOM TONIGHT. PATIENT DENIES ANY URGE TO VOID AT THIS TIME. BED ALARM ON.
--- NOTE | 2020-10-01 00:06 | NUR ---
ATTEMPTED TO WAKE PATIENT PER PATIENT REQUEST FOR SCHEDULED TOILETING. PATIENT REFUSED TO GO TO BATHROOM AND DID NOT FULLY WAKE UP. PATIENT WENT BACK TO SLEEP. BED ALARM ON.
--- NOTE | 2020-10-01 01:49 | NUR ---
PATIENT WAKEN WITH NO PROBLEMS BY STAFF, AMBULATED WITH SHORTEN STRIDE GAIT WITH STREET SHOES ON TO BATHROOM WITH X1 STAFF MOD ASST WITH FREQUENT CUES TO RFID ENGINEER FEET WITH GAIT. BED ALARM ON WHEN BACK IN BED.
[2020-10-01 05:53] VITALS: BP 145/68; PULSE 82; TEMP 98.1
--- NOTE | 2020-10-01 07:34 | NUR ---
CHANGE OF SHIFT REPORT GIVEN TO DAY SHIFT NURSE, ABIGAIL GONG.
--- NOTE | 2020-10-01 10:44 | NUR ---
This nurse called Dr. Mosquera regarding Nuplazid sample medication that patient had started a week ago. Patient had his last dose and this nurse requested another sample box. Dr. Mosquera will check to see if he has any more left. Awaiting a return reply.
--- NOTE | 2020-10-01 15:19 | NUR ---
QUINCY attended a patient/family conference. The patient's , Jazz, was present. IPR Director, PT, OT, ST were also present. IPR Director started by explaining the purpose of the meeting. PT/OT/ST then discussed the patient's progress so far. IPR Director informed the patient and his how a tentative d/c has been planned for next Tuesday, 10/07, with home health PT/OT/ST. The patient and his were agreeable to the plan. Jazz reports that the patient already has home health services from [facility] and she would like to continue with them upon discharge. QUINCY contacted and updated Delilah at [facility]. Delilah reports that they can resume services with the patient. QUINCY then met with the patient and reviewed the IPR Team Conference Note with the patient. The patient had no questions for QUINCY.
[2020-10-01 16:40] VITALS: BP 148/73; PULSE 95; TEMP 98.4
--- NOTE | 2020-10-01 19:00 | NUR ---
Patient resting in bed, call light in reach and chair alarm set.
--- NOTE | 2020-10-01 19:30 | NUR ---
RECEIVED CHANGE OF SHIFT REPORT FROM DAY SHIFT NURSE. PATIENT UP IN CHAIR WITH CHAIR ALARM ON.
--- NOTE | 2020-10-01 19:38 | NUR ---
Patient attended all therapies today. He tolerated meals well this shift. Patient denied any pain this afternoon. His stopped by to see patient and attended the family meeting. Patient will be discharging next week Tuesday with HH PT/OT/ST. This was reported to night nurse.
--- NOTE | 2020-10-01 20:00 | NUR ---
JORGE HAND HANDLING TECH EQUAL BUT WEAK. GAIT SHUFFLING, PATIENT NEEDING FREQUENT CUES TO RELAY TESTER FEET WITH WALKING. PATIENT REPORTS SEEING SILVER BUGS IN BED AT THIS TIME, REASSURED PATIENT THERE ARE NO BUGS ON HIS BED WITH NO PATIENT RESPONSE TO REASSURANCE. SPEECH CLEAR. BED ALARM ON WHEN IN BED.
--- NOTE | 2020-10-02 00:55 | NUR ---
PATIENT CALLED OUT "HELP", FOUND PATIENT LAYING IN BED, STATING HE WET HIMSELF, REQUESTED AND ASSISTED PATIENT OUT OF BED ONTO BSC, PATIENT STATED HE DID NOT THINK HE WOULD BE ABLE TO WALK TO BATHROOM & THAT HIS LEGS FELT WEAK. WHEN SITTING UP ON BSC, STATED HE DID NOT FEEL GOOD AND THAT HIS "SUGAR" WAS LOW. ACCUCHECK RESULTED 59, DOSED WITH SMALL CAN OF REGULAR PEPSI, RECHECKED FSBS 15 MIN AFTER DRANK ALL OF SODA THAT RESULTED IN 84. GAVE PATIENT JERE CRX AND PEANUT BUTTER. PATIENT BACK IN BED, REQUESTED AND GIVEN GAEL SHAKE MADE WITH SKIM MILK AND GAEL ICE CREAM. VOICED WANTING TO BE WAKEN IN A COUPLE OF HOURS TO TOILET TRAINING. BED ALARM ON.
--- NOTE | 2020-10-02 03:29 | NUR ---
ATTEMPTED TO WAKE PATIENT FOR TOILET Q2H SCHEDULE, PATIENT REFUSED, WANTING TO SLEEP. BED ALARM ON.
[2020-10-02 06:09] VITALS: BP 152/95; PULSE 80; TEMP 97.6
--- NOTE | 2020-10-02 07:09 | NUR ---
CHANGE OF SHIFT REPORT GIVEN TO DAY SHIFT NURSE, ABIGAIL GONG.
--- NOTE | 2020-10-02 09:23 | NUR ---
Follow-up visit; Patient thanked for stopping and says that he is doing better today.
--- NOTE | 2020-10-02 09:40 | NUR ---
Patient is a one person transfer to the toilet using gaitbelt and walker. Patient does not use the stool riser due to not fitting physically inside the hole properly. The stool riser sits next to the toilet so patient can use the arm rest of the stool riser for stability when sitting and standing. Patient requires touch assist with eating at times only. Patient denies pain at this time.
--- NOTE | 2020-10-02 15:53 | NUR ---
IPR Director informed QUINCY that the patient states that his walker is worn down. SW contacted the patient's , Jazz, to address this. Jazz reports that she bought the patient a brand new walker and did not have any concerns.
[2020-10-02 16:29] VITALS: BP 132/68; PULSE 93; TEMP 98.7
--- NOTE | 2020-10-02 20:09 | NUR ---
Patient attended all his therapies has been in a pleasent mood this shift. Patient used call light appropriatly. He did state that he kept seeing a child in his room, but he confirmed that it was an hallucination. He denied pain this shift. His stopped by to visit with him this afternoon following therapies. Patient currently resting in recliner, call light in reach and chair alarm set. Reported off to night nurse.
--- NOTE | 2020-10-02 21:00 | NUR ---
PT SITTING UP IN RECLINER. FEET ELEVATED. +3 EDEMA TO FEET BILT. PT HAS FINE TREMORS. UNABLE TO OPEN GRHAM CRACKER PKG. PT COOPERATIVE AND PLEASANT. PT ADMITS TO ANIMAL HALLUCINATIONS TONIGHT. ACCUCHECK 185- SEE MAR FOR SSI/LEVEMEIR GIVEN. CALL LIGHT IN REACH. CHAIR ALARM SET.
[2020-10-03 05:35] VITALS: BP 146/60; PULSE 72; TEMP 97.6
--- NOTE | 2020-10-03 08:58 | NUR ---
PT RESTING IN BED AT BEDSIDE SHIFT REPORT. NIGHT NURSE REPORTED PT CALLED OUT SEVERAL TIMES FROM NIGHTMARES. PT DROWSY AND TIRED THIS AM, STATES HIS NIGHTMARES ARE GETTING WORSE. DENIED PAIN THIS AM.
[2020-10-03 16:59] VITALS: BP 145/68; PULSE 86; TEMP 98.1
--- NOTE | 2020-10-03 17:43 | NUR ---
PT DENIES PAIN THIS SHIFT. WAS OKAY'D BY THERAPY TO BE SBA WHEN IS PRESENT BUT CONTINUE TO CALL WHEN SHE IS NOT. THIS NURSE SUGGEST CONTINUING ALARM AT ALL TIMES, AND SHOW HOW TO TURN OFF.
--- NOTE | 2020-10-03 21:30 | NUR ---
PT SITTING IN RECLINER. MORE A&O TONIGHT. HAVING MINOR HALLUCINATION THAT ARE NOT AFFECTING HIM. COOPERATIVE AND PLEASANT. AGREEABLE TO HS MEDICATIONS. PT USING CALL LIGHT APPROPRIATELY. CHAIR ALAR SET. CALL LIGHT IN REACH.
[2020-10-04 04:17] VITALS: BP 148/64; PULSE 79; TEMP 97.6
--- NOTE | 2020-10-04 08:32 | NUR ---
Patient resting in recliner, independent with eating requiring only touch assistance. Patient's has his clothes and are going to get them washed for him. Denies pain. Will continue to monitor.
--- NOTE | 2020-10-04 10:02 | NUR ---
Patient at [facility] at this time.
[2020-10-04 16:15] VITALS: BP 137/60; PULSE 83; TEMP 97.6
--- NOTE | 2020-10-04 20:01 | NUR ---
PT RESTING IN BED. CHEERFUL AND SOCIAL. MENTAL CLARITY IMPROVED. DENIES AND HALLUCINATIONS AT THIS TIME. NO NEEDS AT THIS TIME. CALL LIGHT IN REACH. BED ALARM SET.
--- NOTE | 2020-10-05 02:50 | NUR ---
PT WOKE UP AGITATED. CHECKED BLOOD SUGER PER REQUEST-160. ARGUING ABOUT GOING HOME TUESDAY INSTEAD OF TUESDAY. WANTS TO TALK TO DR. ALLOW PT TIME TO CALM. DENIED PAIN. ALREADY VOIDED. CALL LIGHT IN REACH. BED ALARM SET.
--- NOTE | 2020-10-05 03:40 | NUR ---
PT SLEEPING. NO DISTRESS.
[2020-10-05 06:32] VITALS: BP 141/71; PULSE 98; TEMP 97.2
--- NOTE | 2020-10-05 06:59 | NUR ---
Patient resting in bed, call light in reach and reporting some indigestion. Given prn maalox.
--- NOTE | 2020-10-05 07:58 | NUR ---
Patient tolerated diet well. Assessment completed and patient denies any pain or questions at this time.
--- NOTE | 2020-10-05 10:16 | NUR ---
Patient was independent with grooming. Mod Assist with dressing lower extremities. Needed help getting pants over feet he was able to pull pants up, but needed touch assist with getting over his bottom. Set up with putting shirt on. Patient walked to scale and then around and back to room with SBA with walker and gait belt. Patient very talkative.
[2020-10-05 16:18] VITALS: BP 135/63; PULSE 90; TEMP 97.7
--- NOTE | 2020-10-05 16:44 | NUR ---
Spoke with patient's about the new medication Nulizid that patient is currently taking for his hallucinations. Dr. Mosquera had stated that he did not have any more samples for patient after this last 7 day dose box was given. Patient has three pills left at this time. Patient's will call his insurance to see if this med can be covered as pills are $[address] Mosquera. Patient researched the RX prescriptions through [employer] and saw that this med could not be discounted there. She will also be checking with her online pharmacy as well. I will have FARIDEH Lackey follow up with patient tomorrow about this.
--- NOTE | 2020-10-05 21:00 | NUR ---
PT SITTING UP IN RECLINER. ASSISTED TO BR WITH WALKER. SHUFFLING GAIT. SPEECH IS WEAK. VOIDED W/O DIFFICULTY. TRANSFERRED TO BED. CALL LIGHT IN REACH. BED ALARM SET.
[2020-10-06 05:33] VITALS: BP 167/88; PULSE 84; TEMP 97.5
--- NOTE | 2020-10-06 07:02 | NUR ---
PT SLEEPING IN BED AT BEDSIDE SHIFT REPORT.
[2020-10-06] MEDS ORDERED: SEROQUEL50 MG PO (09:31)
[2020-10-06] MEDS ORDERED: LASIX 40MG TABL40 MG PO (09:33)
[2020-10-06] MEDS ORDERED: MAG-AL LIQUID 230 ML PO (09:33)
[2020-10-06] MEDS ORDERED: NUPLAZID34 MG PO (09:34)
[2020-10-06] MEDS ORDERED: SINEMET 25/101 UDTAB PO (09:34)
[2020-10-06] MEDS ORDERED: NOVLOG SQ (09:41)
[2020-10-06] MEDS ORDERED: NOVOLOG 100U100 U/M1 SQ (09:41)
--- NOTE | 2020-10-06 13:24 | NUR ---
DR. HODGE'S OFFICE CALLED TO SEE IF THEY WOULD WRITE A 90 DAY SCRIPT FOR NEW MEDICATION NUPLAZID SO THE FAMILY CAN GET IT CHEAPLY POSSIBLE FROM MAIL ORDER. A MESSAGE WAS LEFT AND AWAITING CALL BACK.
--- NOTE | 2020-10-06 15:51 | NUR ---
The patient is to d/c tomorrow. SW met with the patient to review d/c plan. The patient states that he is ready to get home. SW presented and read the IM form outloud to the patient. The patient verbalized understanding and gave QUINCY approval to sign the form on his behalf. SW provided him with a copy.
[2020-10-06 16:37] VITALS: BP 157/87; PULSE 82; TEMP 98
--- NOTE | 2020-10-06 18:26 | NUR ---
PT'S MEDICATION REGIMEN SEEM TO BE WORKING BETTER. PT IS MORE COMPLIANT WITH CARES AND MEDICATIONS. SEEMS MORE RESTED AND LESS AGITATED. PT REPORTS SLEEPING BETTER. DR. SOLIS IS ORDERING 90 DAY SUPPLY OF NUPLAZID FOR PT.
--- NOTE | 2020-10-06 21:00 | NUR ---
Patient resting in the recliner upon enter the room. Patient alert and oriented to person, place and situation. Patient denies any pain or discomfort. Assisted patient to use bathroom to void. 1 person minimal assist needed for transfer. All scheduled meds given per OCT. Bilateral lower legs/feet have +2 pitting edema. Elevated both foot on the pillow. Patient requests to wake hime up in about 2 hours to go to bathroom. Call light within reach. Bed-alarms on. Will check on patient up in 2 hours to use bathroom.
[2020-10-07 05:22] VITALS: BP 154/86; PULSE 51; TEMP 98.1
--- NOTE | 2020-10-07 06:50 | NUR ---
PT RESTING IN RECLINER AT BEDSIDE SHIFT REPORT. UP FREQUENTLY DURING THE NIGHT TO USET HE BATHROOM.
--- NOTE | 2020-10-07 09:07 | NUR ---
The patient is to discharge back home with his today, 10/07, with home health services for custodial/PT/OT/ST from [facility]. SW notified and faxed d/c orders to Delilah at [facility]. No additional needs at this time.
--- NOTE | 2020-10-07 10:48 | NUR ---
PT HEALTH SUMMARY, DISCHARGE SUMMARY, AND HOME MEDS PRINTED AND REVIEWED WITH PT AND . STRESSED IMPORTANCE OF FU APPTS. REVIEWED MEDICATIONS, UNABLE TO CALL PRESCRIPTIONS TO PHARMACY OF CHOICE B/C PHONE SYSTEM IS DOWN. BELONGINGS GATHERED BY SPORTS MANAGEMENT PROFESSOR AND INCLUDING CELL PHONE AND SUPERVISOR MOLD SHOP. PT TRANSPORTED VIA WC BY NURSE AND SEATBELTED FOR RIDE HOME. PT AND RELATION DENIED QUESTIONS.
--- NOTE | 2020-10-07 14:35 | NUR ---
Discharge QIM scores were reviewed by the team. Code of 6 chosen for oral hygiene was determined by team discussion to be the most usual performance before interventions for this patient during the assessment period. Code of 4 chosen for toilet hygiene was determined by team discussion to be the most usual performance for this patient during the assessment period. Code of 6 chosen for toileting transfers was determined by team discussion to be the most usual performance for this patient during the assessment period. Code of 4 chosen for sit to lying was determined by team discussion to be the most usual performance for this patient during the assessment period. Code of 6 chosen for lying to sitting on side of bed was determined by team discussion to be the most usual performance for this patient during the assessment period. Code of 6 for sit to stand was determined by team discussion to be the most usual performance for this patient during the assessment period. Code of 6 for chair/bed to chair transfers was determined by team discussion to be the most usual performance for this patient during the assessment period. Code of 6 chosen for walk 10 feet was determined by team discussion to be the most usual performance for this patient during the assessment period.--Ana Denson,
== END 2020-10-07 10:45 | disposition home health service (06) | DRG 57 ==
PROVIDERS: ADMIT Internal Medicine
DX: G20 Parkinson's disease (principal); K51.90 Ulcerative colitis, unspecified, without complications; I10 Essential (primary) hypertension; E11.9 Type 2 diabetes mellitus without complications; R44.1 Visual hallucinations; R41.0 Disorientation, unspecified; T42.8X5D Adverse effect of antiparkinsonism drugs and other central muscle-tone depressants, subsequent encounter; R00.0 Tachycardia, unspecified; E66.9 Obesity, unspecified; R53.81 Other malaise; Z79.818 Long term (current) use of other agents affecting estrogen receptors and estrogen levels; Z79.82 Long term (current) use of aspirin; Z79.4 Long term (current) use of insulin; Z95.818 Presence of other cardiac implants and grafts; Z87.891 Personal history of nicotine dependence; Z91.81 History of falling; Z88.0 Allergy status to penicillin
CPT/HCPCS: 99222-AI; 99231-AI; 99232-AI; 99233-AI; 99239; G0378; J1650; J1815; J7030; Q9967

== ENCOUNTER 2020-12-17 06:33 | Day surgery (SDC) | payer MEDICARE, BC ==
[2020-12-17] VITALS (10 sets, daily range): BP systolic 110–152; BP diastolic 51–87; PULSE 84–109; TEMP 97.8–98.3
[~2020-12-17] VITALS: Ht 177.8 cm; Wt 120.0 kg
[~2020-12-17 06:33] MED LIST changes: +MAG-AL LIQUID 230 ML PO; +NOVLOG SQ; +SEROQUEL50 MG PO
[2020-12-17 08:00] LABS: HEMATOCRIT 40.7 % (42.0-52.0); HEMOGLOBIN 13.5 g/dl (13.5-18.0); MEAN CELL VOLUME 88 fl (80.0-100.0); MEAN CORPUSCULAR HEMOGLOBIN 29 pg (27.0-31.0); MEAN CORPUSCULAR HGB CONC 33 g/dl (33.0-37.0); MEAN PLATELET VOLUME 10.7 fl (7.4-10.4); PLATELET COUNT 143 K/mm3 (130-400); RED BLOOD COUNT 4.62 M/mm3 (4.20-5.60); REDCELL DISTRIBUTION WIDTH-CV 14.7 % (11.5-14.5)
[2020-12-17 08:08] LABS: INR 1.3 (0.8-3.0)
[2020-12-17 08:12] LABS: CALCIUM 8.4 mg/dL (8.4-10.2); CREATININE, serum 1.07 (0.66-1.25); POTASSIUM 4.1 mmol/L (3.4-5.0)
[2020-12-17] MEDS ORDERED: TYLENOL 325MG325 MG PO (08:15)
[2020-12-17] MEDS ORDERED: MAG-AL LIQUID 230 ML PO (08:16)
[2020-12-17] MEDS ORDERED: LIPITOR 40MG TA40 MG PO (08:17)
[2020-12-17] MEDS ORDERED: SINEMET 25/101 UDTAB PO (08:18)
[2020-12-17] MEDS ORDERED: BENTYL 10MG10 MG/CAP PO (08:19)
[2020-12-17] MEDS ORDERED: LASIX 40MG TABL40 MG PO (08:20)
[2020-12-17] MEDS ORDERED: FLONASEALLERGY NS (08:20)
[2020-12-17] MEDS ORDERED: CVS GLUCOSE BIT1 CTB PO (08:24)
[2020-12-17] MEDS ORDERED: MAG-OX 400400 MG/TAB PO (08:26)
[2020-12-17] MEDS ORDERED: NIZORAL CREAM15 GM TP (08:26)
[2020-12-17] MEDS ORDERED: TOPROL XL 25MG25 MG PO (08:29)
[2020-12-17] MEDS ORDERED: LIALDA 1.2 GM1.2 GM PO (08:29)
[2020-12-17] MEDS ORDERED: NOVOLOG FLEX100 U/ML SQ (08:30)
[2020-12-17] MEDS ORDERED: ZOFRAN 4MG T4 MG/TAB PO (08:36)
[2020-12-17] MEDS ORDERED: ELIDEL1% TOP (08:37)
[2020-12-17] MEDS ORDERED: K-DUR 10 MEQ T10 MEQ PO (08:38)
[2020-12-17] MEDS ORDERED: SEROQUEL 2525 MG/TAB PO (08:39)
[2020-12-17] MEDS ORDERED: FLOMAX 0.40.4 MG/CAP PO (08:40)
[2020-12-17] MEDS ORDERED: VITAMIN D 400400 IU PO (08:43)
[2020-12-17] MEDS ORDERED: CALCIUM CARBON650 M2 PO (08:43)
--- NOTE | 2020-12-17 08:55 | NUR ---
Patient to procedure,report to Suzie Mohamud.
--- NOTE | 2020-12-17 13:09 | NUR ---
First visit from the retail account executive. No needs right now.
--- NOTE | 2020-12-17 14:44 | NUR ---
Called Rosana, river crossing supervisor for medical regarding pt status and orientation. Per he does get confused at night and does have hallucinations and gets very confused. Rosana approves his to stay overnight. Called and notified of this as she left for a scheduled doctor appontment for herself but her doctor advised her to stay home tonight and rest because she pulled some muscles. Tried to update patietn but he was needing to void, when asked if he used the call light for assistance he pointed to his diet pepsi said he pushed that for help. Denies needs, MERT dressing remains CDI, loop recorder removal site remains CDI. Pt has bed alram on, moved pt to closer room for better monitoring. Will continue to monitor.
--- NOTE | 2020-12-17 18:30 | NUR ---
Pt has done well this afternoon. Has difficulty remembering how to use call light at times, has difficulty remembering to keep LUE in sling at times. Resting between disturbances. Incontinent of urine and bowel at times over shift. Dressings remain CDI. Will give bedside shift report to nightshift nurse who will resume care.
--- NOTE | 2020-12-18 00:50 | NUR ---
Patient assessed around 2016. Alert and oriented to self only. Disoriented to time, place, and situation. Hallucinating people in room. Called police due to finding money that he was hallucinating. Sat with patient to calm him down. Patient does state that he is aware that he hallucinates at times. Took medication and called as requested. Peripheral INT to left AC. Denies having SOB and dyspnea. LS CTA. Respirations even and unlabored. HRR. Telemetry in place. Capillary refill less than 3 seconds. Dressings to chest for pacemaker being placed and for loop recorder to be taken out are both CDI. Non-tenting skin turgor. BSAx4. Abdomen soft and non-tender. No edema. Used urinal, urine clear and yellow. Sling to left arm. Patient keeps trying to take it off, unable to redirect on importance of it being on. Keeps taking ice off sites as well. Patient given PRN Melatonin around 2144. Resting in bed with eyes closed at this time. High fall risk precautions in place.
--- NOTE | 2020-12-18 06:16 | NUR ---
Patient was able to get some resting during the night after taking Melatonin. Continues to have some confusion, but easily redirected. Pacemaker interrogated this morning, and put results on chart. Has denied having pain and discomfort thsi shift. Voices no questions, needs, or concerns at this time. Resting in bed with call light within reach.
[2020-12-18 06:57] LABS: BASO # 0.1 (0.0-0.2); EOS # 0.2 (0.0-0.7); EOS % 2.9 % (0-4.0); GRAN # 3.6 (1.4-6.5); GRAN % 58.3 % (42.2-75.2); HEMATOCRIT 39.6 % (42.0-52.0); HEMOGLOBIN 13.1 g/dl (13.5-18.0); LYMPH # 1.6 (1.2-3.4); LYMPH % 25.2 % (20.0-51.0); MEAN CELL VOLUME 88 fl (80.0-100.0); MEAN CORPUSCULAR HEMOGLOBIN 29 pg (27.0-31.0); MEAN CORPUSCULAR HGB CONC 33 g/dl (33.0-37.0); MEAN PLATELET VOLUME 11.4 fl (7.4-10.4); MONO # 0.7 (0.1-0.6); MONO % 12.1 % (1.7-9.3); PLATELET COUNT 144 K/mm3 (130-400); RED BLOOD COUNT 4.52 M/mm3 (4.20-5.60); REDCELL DISTRIBUTION WIDTH-CV 14.7 % (11.5-14.5)
[2020-12-18 07:06] LABS: CALCIUM 8.5 mg/dL (8.4-10.2); CREATININE, serum 0.9 (0.66-1.25); MAGNESIUM 1.9 mg/dL (1.6-2.3); POTASSIUM 3.6 mmol/L (3.4-5.0)
--- NOTE | 2020-12-18 07:24 | NUR ---
Patient awake in bed at this time. C/O 5/10 pain at surgical sites. Pt. wearing O2 at 2L via nasal cannula. Patient states that he has been unable to sleep during the night. Patient C/O of depression but no suicidal thoughts. Will continue to monitor. Call light within reach.
[2020-12-18 07:43] VITALS: BP 157/65; PULSE 80; TEMP 97.7
--- NOTE | 2020-12-18 07:43 | NUR ---
Patient resting in bed at this time. Does not C/O any pain, discomfort or needs at this time. Will continue to monitor. Call light within reach. Fall precautions in place.
[2020-12-18] MEDS ORDERED: TOPROL XL 50MG50 MG PO (09:22)
[2020-12-18] MEDS ORDERED: CLEOCIN HCL300 MG PO (09:25)
--- NOTE | 2020-12-18 12:22 | NUR ---
Patient meets discharge criteria. Scheduled meds given. Assessment performed. Patient does not C/O any pain or discomfort. Discharge instructions/education given. Patient denies any questions or concerns. IV DC'd catheter intact, no signs of phlebitis. Patient escorted out of the building by [facility] Staff via wheelchair.
== END 2020-12-18 11:30 | disposition home or self-care (01) ==
LOC: COL.CAR 06:33 → MEDICAL 10:57 → COL.CAR 12-18 11:30
PROVIDERS: Internal Medicine Cardiovascular Disease
DX: I48.0 Paroxysmal atrial fibrillation (principal); I49.5 Sick sinus syndrome; I45.5 Other specified heart block; I48.92 Unspecified atrial flutter; E11.9 Type 2 diabetes mellitus without complications; I11.0 Hypertensive heart disease with heart failure; I50.33 Acute on chronic diastolic (congestive) heart failure; G47.33 Obstructive sleep apnea (adult) (pediatric); Z20.822 Contact with and (suspected) exposure to COVID-19; K21.9 Gastro-esophageal reflux disease without esophagitis; I25.10 Atherosclerotic heart disease of native coronary artery without angina pectoris; I70.0 Atherosclerosis of aorta; I25.84 Coronary atherosclerosis due to calcified coronary lesion; G20 Parkinson's disease; E66.9 Obesity, unspecified; F02.80 Dementia in other diseases classified elsewhere, unspecified severity, without behavioral disturbance, psychotic disturbance, mood disturbance, and anxiety; G31.83 Neurocognitive disorder with Lewy bodies; N40.0 Benign prostatic hyperplasia without lower urinary tract symptoms; F41.9 Anxiety disorder, unspecified; R21 Rash and other nonspecific skin eruption; K51.919 Ulcerative colitis, unspecified with unspecified complications; Z79.82 Long term (current) use of aspirin; Z79.899 Other long term (current) drug therapy; Z79.4 Long term (current) use of insulin; Z87.891 Personal history of nicotine dependence; Z80.9 Family history of malignant neoplasm, unspecified; Z68.36 Body mass index [BMI] 36.0-36.9, adult
CPT/HCPCS: OP; C1769; C1785; C1894; C1898; J1815; J2250; J3010; J3370; J7030; J7050

== ENCOUNTER 2021-03-02 08:48 | Emergency (ER) | payer MEDICARE, BC ==
[~2021-03-02] VITALS: Ht 177.8 cm; Wt 119.1 kg
[~2021-03-02 08:48] MED LIST changes: +CALCIUM CARBON650 M2 PO; +CLEOCIN HCL300 MG PO; +CVS GLUCOSE BIT1 CTB PO; +ELIDEL1% TOP; +LIALDA 1.2 GM1.2 GM PO; +MAG-OX 400400 MG/TAB PO; +NIZORAL CREAM15 GM TP; +NOVOLOG FLEX100 U/ML SQ; +TOPROL XL 50MG50 MG PO; +VITAMIN D 400400 IU PO
[2021-03-02 11:27] LABS: BASO # 0.1 (0.0-0.2); BASO % 1.1 % (0.0-2.0); EOS # 0.1 (0.0-0.7); GRAN # 5.4 (1.4-6.5); GRAN % 67.8 % (42.2-75.2); HEMATOCRIT 44.2 % (42.0-52.0); HEMOGLOBIN 14.7 g/dl (13.5-18.0); LYMPH # 1.5 (1.2-3.4); LYMPH % 19.4 % (20.0-51.0); MEAN CELL VOLUME 90 fl (80.0-100.0); MEAN CORPUSCULAR HEMOGLOBIN 30 pg (27.0-31.0); MEAN CORPUSCULAR HGB CONC 33 g/dl (33.0-37.0); MEAN PLATELET VOLUME 11.5 fl (7.4-10.4); MONO # 0.8 (0.1-0.6); MONO % 10.3 % (1.7-9.3); PLATELET COUNT 135 K/mm3 (130-400); RED BLOOD COUNT 4.89 M/mm3 (4.20-5.60); REDCELL DISTRIBUTION WIDTH-CV 14.6 % (11.5-14.5)
[2021-03-02 11:44] LABS: ALANINE AMINOTRANSFERASE 45 U/L (4-49); ALBUMIN 3.9 gm/dL (3.5-5.0); ALKALINE PHOSPHATASE 159 U/L (50-136); ANION GAP 5 mmol/L (7-16); AST,SGOT 40 U/L (15-37); BILIRUBIN,TOTAL 0.9 mg/dL (0.0-1.0); BLOOD UREA NITROGEN 17 mg/dL (9-20); CALCIUM 9.1 mg/dL (8.4-10.2); CARBON DIOXIDE 26 mmol/L (22-30); CHLORIDE 110 mmol/L (98-107); CREATININE, serum 1.06 (0.66-1.25); GLUCOSE 251 mg/dL (74-106); POTASSIUM 3.9 mmol/L (3.4-5.0); SODIUM 140 mmol/L (137-145); TOTAL PROTEIN 7.3 gm/dL (6.4-8.2)
[2021-03-02 11:58] LABS: TROPONIN-I < 0.012 ng/mL (0.000-0.035)
--- NOTE | 2021-03-02 12:51 | NUR ---
take away worker met with patient's spouse, Jazz [phone] to discuss discharge planning. Spouse is patient's caregiver at home and they utilize [facility]. Patient has [facility] and Dr Moyer is his primary care provider. Patient has Parkinsons and dementia and spouse would like placement in a marine oil terminal superintendent care facility. Due to nature of current concern, worker advised that a roni-psychiatric inpatient placement would be required prior to jail care placement. Worker has a durable power of transactional attorney for health care, naming spouse. Worker provided information on available geripsych inpatient facilities and gave referrals to [facility], [facility] [place], [facility] in [place], and [facility] in [place]. Worker contacted facilities and also secured that Dr Mccarthy will evaluate patient today at 3:15pm as requested by roni psych facilities. Spouse verbalized understanding of above placement and that secure transport will be needed. Worker contacted [facility] and they contacted spouse and advised that patient can be added to their wait list.
--- NOTE | 2021-03-02 16:42 | NUR ---
[facility] with [facility] in [place], [place] accepts patient today. cabinet worker met with spouse, who spoke with Cindi, and advised of transfer today via secure transportation. Spouse is going to bring patient's walker into the hopsital and is agreeable to patient's transfer. Worker collaborated with house superviser and patient's nurse. cabinet worker met with Dr Mccarthy and advised of the above information. Worker faxed all clinical information to [facility] and nurse will complete nursing assessment and call report. House superviser will arrange secure transport and advise [facility] of time of patient's arrival. Patient will transfer to [facility] psychiatric unit this date via secure transport.
[2021-03-02 19:00] VITALS: BP 151/90; PULSE 87; TEMP 98.7
[2021-07-14] MEDS ORDERED: DEPAKOTE 250MG250 MG PO (09:07)
[2021-07-14] MEDS ORDERED: FLEET ENEM1 BOT/133 RC (09:08)
[2021-07-14] MEDS ORDERED: LEXAPRO 10MG10 MG PO (09:08)
[2021-07-14] MEDS ORDERED: DULCOLAX S10 MG/SUPP RC (09:08)
[2021-07-14] MEDS ORDERED: NEURONTIN100 MG/CAP PO (09:09)
[2021-07-14] MEDS ORDERED: AMARYL 2MG T2 MG/TAB PO (09:09)
[2021-07-14] MEDS ORDERED: HYDROCORTISONE30 G3 TP (09:10)
[2021-07-14] MEDS ORDERED: LASIX 40MG TABL40 MG PO ×2 (09:10→13:55)
[2021-07-14] MEDS ORDERED: LIDODERM 5% PATC1 EA TP (09:10)
[2021-07-14] MEDS ORDERED: MELATONIN3 M1 PO (09:11)
[2021-07-14] MEDS ORDERED: LIALDA 1.2 GM1.2 GM PO (09:11)
[2021-07-14] MEDS ORDERED: TOPROL XL 25MG25 MG PO (09:12)
[2021-07-14] MEDS ORDERED: GOOD NEIGH1200 MG/15 PO (13:20)
[2021-07-14] MEDS ORDERED: NAPROSYN 2250 MG/TAB PO (13:21)
[2021-07-14] MEDS ORDERED: NYSTATIN100000 U/1 TOP (13:30)
[2021-07-14] MEDS ORDERED: D3-5050000 IU PO (13:39)
[2021-07-14] MEDS ORDERED: VOLTAREN GEL 1%1 TU TP (13:40)
[2021-07-14] MEDS ORDERED: ZYPREXA10 MG PO (13:41)
[2021-07-14] MEDS ORDERED: ZYPREXA 5MG5 MG PO (13:41)
[2021-07-15] MEDS ORDERED: LOPRESSOR 225 MG/TAB PO (10:44)
== END 2021-03-02 19:00 ==
LOC: COL.ER 08:48
PROVIDERS: Personal Emergency Response Attendant
DX: R29.6 Repeated falls (principal); G20 Parkinson's disease; F03.90 Unspecified dementia, unspecified severity, without behavioral disturbance, psychotic disturbance, mood disturbance, and anxiety; I49.5 Sick sinus syndrome; I48.0 Paroxysmal atrial fibrillation; K51.90 Ulcerative colitis, unspecified, without complications; I10 Essential (primary) hypertension; Z95.0 Presence of cardiac pacemaker; Z87.891 Personal history of nicotine dependence; Z79.899 Other long term (current) drug therapy; Z88.0 Allergy status to penicillin; Z88.1 Allergy status to other antibiotic agents; Z20.822 Contact with and (suspected) exposure to COVID-19
CPT/HCPCS: J1815

== ENCOUNTER → 2021-11-09 | Outpatient (CLI) | payer MEDICARE, BC ==
[~2021-11-09] MED LIST changes: +AMARYL 2MG T2 MG/TAB PO; +D3-5050000 IU PO; +DEPAKOTE 250MG250 MG PO; +DULCOLAX S10 MG/SUPP RC; +FLEET ENEM1 BOT/133 RC; +GOOD NEIGH1200 MG/15 PO; +HYDROCORTISONE30 G3 TP; +LEXAPRO 10MG10 MG PO; +LIDODERM 5% PATC1 EA TP; +LOPRESSOR 225 MG/TAB PO; +MELATONIN3 M1 PO; +NAPROSYN 2250 MG/TAB PO; +NEURONTIN100 MG/CAP PO; +NYSTATIN100000 U/1 TOP; +VOLTAREN GEL 1%1 TU TP; +ZYPREXA 5MG5 MG PO; +ZYPREXA10 MG PO
== END ==
LOC: COL.RAD 09:23
DX: R35.1 Nocturia (principal); R39.12 Poor urinary stream